=== PATIENT | female | born 1945 | race Two or more races ===

== ENCOUNTER 2025-01-08 14:48 | Inpatient (IN) | payer OTHER, MEDICAID ==
[~2025-01-08] VITALS: Ht 152.4 cm; Wt 57.4 kg
--- NOTE | 2025-01-08 15:12 | ED.PDOC ---
History of Present Illness HPI Comments 79-year-old female with history of hypertension, diabetes, dyslipidemia, CKD and asthma brought in by EMS from home for evaluation of a syncopal episode preceded by dizziness. Arrival by EMS, patient was found to have blood pressure in the 80s systolic. On arrival to the ER, the patient is complaining of left lower quadrant abdominal pain. She denies any headache, vision changes, weakness, chest pain, shortness a breath, nausea, vomiting, diarrhea or dysuria. Chief Complaint: Low Blood Pressure Time Seen by MD: 15:00 Reviewed Notes: Nurses Notes, Glazier Helper Notes, Medications, Allergies Allergies: Coded Allergies: NO KNOWN ALLERGIES (Unverified , 01/08/25) Information Source: Patient, Emergency Med Personnel Mode of Arrival: EMS Past Medical History PAST MEDICAL HISTORY: Asthma, CKF, DM, High Lipids, HTN Surgical History: Denies all surgeries JUNIOR LEGAL SECRETARY History: No Pertinent JUNIOR LEGAL SECRETARY History Family History Family History: Reviewed,noncontributory to illness Social History Smoker: Non-Smoker Alcohol: Denies ETOH Use Drugs: Denies Drug Use Lives In: Home All Other Systems: Reviewed and Negative (Comprehensive systems review obtained and negative except for what is stated in the HPI.) Physical Exam General Appearance: Mild Distress HEENT: Other (Pupils and face symmetric. Moist mucous membranes.) Neck: Full Range of Motion, Normal Inspection Respiratory: Lungs Clear, No Accessory Muscle Use, No Respiratory Distress, Normal Breath Sounds Cardiovascular: No Edema, No JVD, Regular Rate/Rhythm Breast Exam: Deferred Gastrointestinal: LLQ, Soft, Tenderness Genitalia: Deferred Pelvic: Deferred Rectal: Deferred Extremities: Normal inspection, Normal range of motion, Non-tender, No pedal edema Neurologic: Alert (Oriented x4), Normal Affect, Normal Mood, Other (Moves all extremities) Cerebellar Function: NOT DONE Reflexes: NOT DONE Skin: Dry, Normal Color, Warm Lymphatic: NOT DONE Was a procedure done? Was a procedure done?: No Differential Dx Considerations may include: CVA, TIA, arrhythmia, NV, UTI, colitis, diverticular disease, kidney stone, hypovolemia/orthostasis, sepsis, among others X-Ray, Labs, Meds, VS Vital Signs Date Time Temp Pulse Resp B/P (MAP) Pulse Ox O2 Delivery O2 Flow Rate FiO2 01/08/25 20:00 99.1 90 17 138/59 (85) 99 99.1 8/23/25 18:00 86 17 114/89 (97) 99 01/08/25 17:38 99 Room Air* 0 21 01/08/25 17:00 95 22 99 Room Air* 0 21 01/08/25 16:00 95 17 129/69 (89) 99 01/08/25 15:23 98.5 62 16 87/45 96 98.5 01/08/25 15:12 98.9 76 17 93/26 (48) 99 98.9 Lab Test 01/08/25 17:42 01/08/25 16:17 01/08/25 16:01 Range/Units Lactic Acid Level 3.1 *H 3.3 *H 0.4-2.0 mmol/L Troponin I High Sensitivity 3 L 4 </=34 ng/L Stool pH Pending Stool Occult Blood Positive Negative Stool Occult Blood Sample #3 Negative Stool for White Cells None seen White Blood Count 29.0 H 4.4-10.8 10^3/uL Red Blood Count 4.98 4.0-5.20 10^6/uL Hemoglobin 13.5 12.2-16.2 g/dL Hematocrit 41.6 36.0-46.0 % Mean Corpuscular Volume 83.4 80.0-100.0 fL Mean Corpuscular Hemoglobin 27.1 L 28.0-32.0 pg Mean Corpuscular Hemoglobin Concent 32.5 32.0-36.0 g/dL Red Cell Distribution Width 15.1 H 11.8-14.3 % Platelet Count 351 140-450 10^3/uL Mean Platelet Volume 8.3 6.9-10.8 fL Neutrophils (%) (Auto) 37.0-80.0 % Lymphocytes (%) (Auto) 10.0-50.0 % Monocytes (%) (Auto) 0.0-12.0 % Basophils (%) (Auto) 0.0-2.0 % Neutrophils # (Auto) 1.6-8.6 10 ^3/uL Lymphocytes # (Auto) 0.4-5.4 10 ^3/uL Monocytes # (Auto) 0-1.3 10 ^3/uL Differential Total Cells Counted 100.0 100 Neutrophils % (Manual) 77 37.0-80.0 Band Neutrophils % (Manual) 7 Lymphocytes % (Manual) 10 10.0-50.0 Monocytes % (Manual) 6 0-12 Eosinophils % (Manual) 0 0-7 Basophils % (Manual) 0 0.0-2.0 Metamyelocytes % (manual) 0 Myelocytes % (Manual) 0 Promyelocytes % (Manual) 0 Blast Cells % (Manual) 0 Reactive Lymphocytes 0 Platelet Estimate Adequate Prothrombin Time 10.8 9.3-11.8 sec Prothrombin Time INR 1.02 0.9-1.15 Activated Partial Thromboplast Time 22.2 L 24.5-34.5 SEC D-Dimer, Quantitative > 35.20 H 0.0-0.49 mg/L FEU Sodium Level 141 136-145 mmol/L Potassium Level 3.6 3.5-5.1 mmol/L Chloride Level 106 98-107 mmol/L Carbon Dioxide Level 20 20-31 mmol/L Anion Gap 15 5-15 Blood Urea Nitrogen 20 9-23 mg/dL Creatinine 1.39 H 0.550-1.02 mg/dL Glomerular Filtration Rate Calc 38 >90 mL/min BUN/Creatinine Ratio 14.4 10.0-20.0 Serum Glucose 162 H 74-106 mg/dL Calcium Level 9.8 8.7-10.4 mg/dL Total Bilirubin 0.3 0.2-1.0 mg/dL Aspartate Amino Transferase (AST) 30 13-40 U/L Alanine Aminotransferase (ALT) 22 7-40 U/L Alkaline Phosphatase 66 46-116 U/L B-Type Natriuretic Peptide 61.99 0-100 pg/mL Total Protein 7.2 5.7-8.2 g/dL Albumin 4.7 3.2-4.8 g/dL Current Medications Medications (Trade) Dose Ordered Sig/Claudy Route Start Time Stop Time Status Last Admin Lactated Ringer's 2,000 ml @ 1,000 mls/hr Q2H ONCE IV 01/08/25 15:15 01/08/25 17:14 DC 01/08/25 15:35 Cefepime HCl 50 ml @ 50 mls/hr ONCE ONCE IV 01/08/25 16:15 01/08/25 17:14 DC 01/08/25 16:[address] [address] Ph: [phone] DIAGNOSTIC IMAGING Diagnostic Imaging Report : [id number] Signed PATIENT: SYDNEE CASTILLO ACCT: [id number] UNIT: [id number] : 1945 LOC: ER ROOM / BED: / AGE / SEX: 79 / F ADM STATUS: REG ER SERVICE [id number] ORDERING PHYSICIAN: ESDRAS JOHNSON MD PROCEDURE(s): HWOCT - HEAD WITHOUT CONTRAST REASON: syncope ORDER NUMBER(s): [id number], ACCESSION NUMBER(s): [id number] EXAM: CT HEAD WITHOUT CONTRAST INDICATION: syncope TECHNIQUE: CT of the head without intravenous contrast. Radiation Dose Information: CT Dose: CTDI volume is 53.44 mGy. Dose-length product is 965.26 mGy*cm The dose indicators for CT are the volume Computed Tomography (CT) Dose Index (CTDIvol) and the Dose Length Product (DLP), and are measured in units of mGy and mGy-cm, respectively. These indicators are not patient dose, but values generated from the CT scanner acquisition factors. The report includes radiation exposure data for exposures received during this examination. COMPARISON: None FINDINGS: There is no evidence of acute intracranial hemorrhage, extra-axial collection, mass effect, midline shift, herniation or hydrocephalus. The ventricles, sulci and cisterns are age appropriate. The mcleod-white differentiation is intact. Patchy periventricular and subcortical white matter hypoattenuation is nonspecific but may be related to small vessel ischemic disease. The visualized paranasal sinuses and mastoid air cells are clear. The surrounding soft tissues and osseous structures are unremarkable. IMPRESSION: 1. No acute intracranial abnormality. ATED BY: RADHA BEACH Jr., DO DICTATED DATE/TIME: 01/08/25 154 SIGNED BY: RADHA BEACH Jr., SIGNED DATE/TIME: 01/08/25 154 CC: [place] [id number] Ph: [phone] DIAGNOSTIC IMAGING Diagnostic Imaging Report : [id number] Signed PATIENT: SYDNEE CASTILLO ACCT: [id number] UNIT: [id number] : 1945 LOC: ER ROOM / BED: / AGE / SEX: 79 / F ADM STATUS: REG ER SERVICE 1503 ORDERING PHYSICIAN: ESDRAS JOHNSON MD PROCEDURE(s): CXRP - CHEST PORTABLE REASON: syncope hypotension ORDER NUMBER(s): [id number], ACCESSION NUMBER(s): [id number] CHEST RADIOGRAPH Indication: syncope hypotension Technique: Single frontal view of the chest was obtained Comparison: None FINDINGS: Lines and Tubes: None Lungs: No focal consolidation. Bronchovascular crowding due 2 low lung volumes. Pleura: No effusion. No pneumothorax. Cardiomediastinal contours: Unremarkable Bones: No acute osseous abnormality. IMPRESSION: No acute cardiopulmonary disease. ATED BY: PARVIN TAVERA DO DICTATED DATE/TIME: 01/08/251545 SIGNED BY: PARVIN TAVERA DO SIGNED DATE/TIME: 01/08/251545 CC: [place] [id number] Ph: [phone] DIAGNOSTIC IMAGING Diagnostic Imaging Report : [id number] Signed PATIENT: SYDNEE CASTILLO ACCT: [id number] UNIT: [id number] : 1945 LOC: ER ROOM / BED: / AGE / SEX: 79 / F ADM STATUS: REG ER SERVICE 1503 ORDERING PHYSICIAN: ESDRAS JOHNSON MD PROCEDURE(s): ABPL - CT AB PEL WO CON-NO ORAL OR IV REASON: hypotension LLQ pain ORDER NUMBER(s): [id number], ACCESSION NUMBER(s): [id number] Exam: CT CT AB PEL WO CON-NO ORAL OR IV History: hypotension LLQ pain Comparison Study: None TECHNIQUE: Multidetector CT of the abdomen was performed from lung bases to pubic symphysis. Imaging was performed without IV contrast. Axial, coronal and sagittal multiplanar reformats were obtained from the axial data set by the technologist. Radiation Dose Information: CT Dose: CTDI volume is 7.11 mGy. Dose-length product is 368.82 mGy*cm FINDINGS: Evaluation of solid organs is limited due to lack of intravenous contrast use. Findings: Lung Bases: No acute or significant lung base finding. Normal heart size. No pleural or pericardial effusion. Liver: The liver is normal in size. No focal lesions. Gallbladder and Biliary Tree: Unremarkable Spleen: Unremarkable Pancreas: The pancreas is grossly normal in appearance. Adrenal Glands: Unremarkable Kidneys: Kidneys are grossly normal without calculi or hydronephrosis. Bladder: Grossly unremarkable for degree of distention. Bowel: The stomach is grossly normal in appearance. Nondistended fluid-filled small bowel. Stool in the rectosigmoid colon. The appendix is not visualized; however, no secondary findings of acute appendicitis identified. Ascites: Absent Lymphadenopathy: No mesenteric, retroperitoneal or periportal lymphadenopathy. Abdominal Wall and Mesentery: Unremarkable. Vasculature: The visualized abdominal aorta is normal in size and caliber. Evaluation of abdominal and pelvic vessels is limited due to lack of intravenous contrast. Pelvic Organs: Unremarkable Musculoskeletal: No aggressive focal bony lesions, acute fractures or dislocation. Soft tissues: Unremarkable IMPRESSION: 1. Nondistended fluid-filled small bowel may represent enteritis 2. Stool-filled rectosigmoid colon.( 8 cm may represent fecal impaction. Radiation optimization: All CT scans at this facility use at least one of these dose optimization techniques: automated exposure control mA and/or kV adjustment per patient size (includes targeted exams where dose is matched to clinical indication) or iterative reconstruction. ATED BY: RADHA BEACH Jr., DO DICTATED DATE/TIME: 01/08/25 1559 SIGNED BY: RADHA BEACH Jr., SIGNED DATE/TIME: 01/08/25 155 CC: X-Ray, Labs, Meds, VS Comment 79-year-old female with history of hypertension, diabetes, dyslipidemia, CKD and asthma brought in by EMS from home for evaluation of a syncopal episode preceded by dizziness, and complaining of left lower quadrant abdominal pain. Initial vitals remarkable for BP 87/45 Exam remarkable for left lower quadrant tenderness to palpation Rhythm strip independently interpreted by me: Sinus rhythm, rate 62, no ectopy. CT head and chest x-ray unremarkable CT abdomen and pelvis IMPRESSION: 1. Nondistended fluid-filled small bowel may represent enteritis 2. Stool-filled rectosigmoid colon.( 8 cm may represent fecal impaction. CBC remarkable for WBC 29, metabolic panel remarkable for creatinine 1.39, BNP and troponins negative, lactate 3.3, 3.1 on repeat, D-dimer greater than 35.2, stool occult blood positive Patient treated with the following in the ED: 2 L IV LR bolus, cefepime 2 g IV On re-evaluation, BP is 138/59 and other vitals were stable. Patient is saturating 86% on room air and is not in respiratory distress elevation and D- dimer is likely due to sepsis and unlikely due to PE. Patient's creatinine is 1.39, so CT angio chest was not performed to rule out PE. Patient may undergo V /Q scan in the morning. Plan is to admit the patient for IV antibiotics and hydration. Time of 1ST Reevaluation: 15:30 Reevaluation 1ST: Unchanged Patient Education/Counseling: Diagnosis, Treatment, Other (need for admission ) Family Education/Counseling: No Family Present SEPSIS Sepsis Screen Physician Orders Urinalysis (01/08/25 15:03) Chest Portable (01/08/25 15:03) Accucheck (01/08/25 15:03) Blood Culture (01/08/25 15:03) Notify Md If Map <65 Or Bp<90 (01/08/25 15:03) If Map<65 Start Vasopressor (01/08/25 15:03) Sepsis Reassesment After Fluid (01/08/25 16:03) Head Without Contrast (01/08/25 15:03) Ct Ab Pel Wo Con-No Oral Or Iv (01/08/25 15:03) Insert/Manage Urinary Catheter QSHIFT (01/08/25 15:11) Stool Bacterial Culture (01/08/25 16:16) Ph Stool (01/08/25 16:16) Cefepime 1gm/ 50ml (Maxipime 1gm/50ml) (01/09/25 06:00) Vital Signs Date Time Temp Pulse Resp B/P (MAP) Pulse Ox O2 Delivery O2 Flow Rate FiO2 01/08/25 20:00 99.1 90 17 138/59 (85) 99 99.1 01/08/25 18:00 86 17 114/89 (97) 99 01/08/25 17:38 99 Room Air* 0 21 01/08/25 17:00 95 22 99 Room Air* 0 21 01/08/25 16:00 95 17 129/69 (89) 99 01/08/25 15:23 98.5 62 16 87/45 96 98.5 01/08/25 15:12 98.9 76 17 93/26 (48) 99 98.9 Laboratory Tests Test 01/08/25 16:01 01/08/25 17:42 Lactic Acid Level 3.3 mmol/L (0.4-2.0) *H 3.1 mmol/L (0.4-2.0) *H White Blood Count 29.0 10^3/uL (4.4-10.8) H Medications Medications Dose Ordered Sig/Claudy Route Start Time Stop Time Status Last Admin Dose Admin Cefepime HCl 50 ml @ 50 mls/hr ONCE ONCE IV 01/08/25 16:15 01/08/25 17:14 DC 01/08/25 16:21 Lactated Ringer's 2,000 ml @ 1,000 mls/hr Q2H ONCE IV 01/08/25 15:15 01/08/25 17:14 DC 01/08/25 15:35 Reassessment Post Fluid SEPSIS FOCUS EXAM(REASSESSMENT Sepsis reassessment focused exam completed. Date: 01/08/25 Time 20:30 Departure 1 Departure Time of Disposition: 20:30 Impression: Primary Impression: Syncope Additional Impressions: Enteritis Sepsis Disposition: ADMITTED INPATIENT Admit to: Tele Condition: Guarded Critical Care Note Critical Care Time?: Yes (35 min-critical care time only) Critical care comment: Critical care time including multiple bedside re-evaluations, review of lab and imaging studies, discussion of the case with the admitting provider. Patient is high risk for hemodynamic and/or neurologic decompensation. Stability Stability form required: No Heart Score Heart Score: Heart Score Response (Comments) Value History N/A 0 EKG N/A 0 Age N/A 0 Risk Factors N/A 0 Troponin N/A 0 Total 0 I personally scribed for ESDRAS JOHNSON MD ([email or web address]) on 01/08/25 at 17:42. Electronically submitted by Darrel Aquino ([email or web address]). ESDRAS JOHNSON MD Jan 08, 2025 15:12
[2025-01-08] MEDS: LACTATED RINGER'S 2,000 ML IV ONE (15:35)
--- NOTE | 2025-01-08 15:49 | DVH ---
CHEST RADIOGRAPH Indication: syncope hypotension Technique: Single frontal view of the chest was obtained Comparison: None FINDINGS: Lines and Tubes: None Lungs: No focal consolidation. Bronchovascular crowding due 2 low lung volumes. Pleura: No effusion. No pneumothorax. Cardiomediastinal contours: Unremarkable Bones: No acute osseous abnormality. IMPRESSION: No acute cardiopulmonary disease.
--- NOTE | 2025-01-08 15:52 | DVH ---
EXAM: CT HEAD WITHOUT CONTRAST INDICATION: syncope TECHNIQUE: CT of the head without intravenous contrast. Radiation Dose Information: CT Dose: CTDI volume is 53.44 mGy. Dose-length product is 965.26 mGy*cm The dose indicators for CT are the volume Computed Tomography (CT) Dose Index (CTDIvol) and the Dose Length Product (DLP), and are measured in units of mGy and mGy-cm, respectively. These indicators are not patient dose, but values generated from the CT scanner acquisition factors. The report includes radiation exposure data for exposures received during this examination. COMPARISON: None FINDINGS: There is no evidence of acute intracranial hemorrhage, extra-axial collection, mass effect, midline s hift, herniation or hydrocephalus. The ventricles, sulci and cisterns are age appropriate. The mcleod-white differentiation is intact. Patchy periventricular and subcortical white matter hypoattenuation is nonspecific but may be related to small vessel ischemic disease. The visualized paranasal sinuses and mastoid air cells are clear. The surrounding soft tissues and osseous structures are unremarkable. IMPRESSION: 1. No acute intracranial abnormality.
--- NOTE | 2025-01-08 16:01 | DVH ---
Exam: CT CT AB PEL WO CON-NO ORAL OR IV History: hypotension LLQ pain Comparison Study: None TECHNIQUE: Multidetector CT of the abdomen was performed from lung bases to pubic symphysis. Imaging was performed without IV contrast. Axial, coronal and sagittal multiplanar reformats were obtained fr om the axial data set by the technologist. Radiation Dose Information: CT Dose: CTDI volume is 7.11 mGy. Dose-length product is 368.82 mGy*cm FINDINGS: Evaluation of solid organs is limited due to lack of intravenous contrast use. Findings: Lung Bases: No acute or significant lung base finding. Normal heart size. No pleural or pericardial effusion. Liver: The liver is normal in size. No focal lesions. Gallbladder and Biliary Tree: Unremarkable Spleen: Unremarkable Pancreas: The pancreas is grossly normal in appearance. Adrenal Glands: Unremarkable Kidneys: Kidneys are grossly normal without calculi or hydronephrosis. Bladder: Grossly unremarkable for degree of distention. Bowel: The stomach is grossly normal in appearance. Nondistended fluid-filled small bowel. Stool in t he rectosigmoid colon. The appendix is not visualized; however, no secondary findings of acute appen dicitis identified. Ascites: Absent Lymphadenopathy: No mesenteric, retroperitoneal or periportal lymphadenopathy. Abdominal Wall and Mesentery: Unremarkable. Vasculature: The visualized abdominal aorta is normal in size and caliber. Evaluation of abdominal a nd pelvic vessels is limited due to lack of intravenous contrast. Pelvic Organs: Unremarkable Musculoskeletal: No aggressive focal bony lesions, acute fractures or dislocation. Soft tissues: Unremarkable IMPRESSION: 1. Nondistended fluid-filled small bowel may represent enteritis 2. Stool-filled rectosigmoid colon.( 8 cm may represent fecal impaction. Radiation optimization: All CT scans at this facility use at least one of these dose optimization arlene hniques: automated exposure control mA and/or kV adjustment per patient size (includes targeted exam s where dose is matched to clinical indication) or iterative reconstruction.
[2025-01-08 16:20] LABS: Hemoglobin 13.5 g/dL (12.2-16.2)
[2025-01-08] MEDS: CEFEPIME 1GM/ 50ML 50 ML IV ONE (16:21)
[2025-01-08 16:22] LABS: Hematocrit 41.6 % (36.0-46.0); Mean Corpuscular Hemoglobin 27.1 pg (28.0-32.0); Mean Corpuscular Volume 83.4 fL (80.0-100.0)
[2025-01-08 16:40] LABS: Alanine Aminotransferase 22 U/L (7-40); Albumin 4.7 g/dL (3.2-4.8); Alkaline Phosphatase 66 U/L (46-116); Anion Gap 15 (5-15); BUN/Creatinine Ratio 14.4 (10.0-20.0); Bilirubin, Total 0.3 mg/dL (0.2-1.0); Blood Urea Nitrogen 20 mg/dL (9-23); Calcium 9.8 mg/dL (8.7-10.4); Chloride 106 mmol/L (98-107); Potassium 3.6 mmol/L (3.5-5.1); Sodium 141 mmol/L (136-145); Total Cells Counted 100.0 (100); Total Protein 7.2 g/dL (5.7-8.2)
[2025-01-08 16:41] LABS: Carbon Dioxide 20 mmol/L (20-31); Glucose 162 mg/dL (74-106)
[2025-01-08 16:42] LABS: INR 1.02 (0.9-1.15); Partial Thromboplastin Time 22.2 SEC (24.5-34.5); Prothrombin Time 10.8 sec (9.3-11.8)
[2025-01-08 16:44] LABS: Lactic Acid w/Reflex 3.3 mmol/L (0.4-2.0)
[2025-01-08 17:00] VITALS: PULSE 95; RESP 22; O2SAT 99
[2025-01-08] MEDS ORDERED: DEXTROSE (50%) 50ML SYRG IV PRN (21:00)
[2025-01-08] MEDS ORDERED: NITROGLYCERIN 0.4 MG SL TAB SL PRN (21:00)
--- NOTE | 2025-01-08 21:22 | DVHHP2 ---
ESTRELLA GOMEZ RESIDENT 01/08/252121: History of Present Illness History of Present Illness The patient is 79-year-old female with past medical history of hypertension, diabetes on insulin, dyslipidemia, hypothyroidism, who came to the hospital after the patient fell and got dizzy while sitting understanding of in washroom, fell in wash him, started waking up again patient fell down on hallway. Witnessed by family member. This event happened around 2:00 p.m. on 08/05/2024. The patient had similar episodes where the patient get dizziness while certainly standing up however never had passing out episode. Doing this even patient hit her head as well. Never happened he has event before. The patient also complaining of left-sided lower quadrant abdominal pain associated with associated with constipation past 3-4 day. Last bowel movement was 3 days ago. Oxygen should waiting discomfort as well. Because of the patient is not having good oral intake of liquid And solid food. Apart from that the patient denied any other complaint green chest pain, shortness of bread, fever, chills however patient complaining of mild she were today. No any other complaint of sensory deficit, motor weakness, any other complaint. As per family and patient the patient is pretty active and able to ambulate without any support. No any other complaint. Past medical history:hypertension, diabetes on insulin, dyslipidemia, hypothyroidism Past surgical history: None Family's history: Noncontributory Personal history: The patient lives with family, sister take care of her at home. Home medication: Levothyroxine , benazepril, duloxetine, insulin, donepezil, gabapentin. Review of Systems Review of Systems The patient is alert oriented, complaining of mild left lower quadrant abdominal pain, no any other complaint. Patient had bowel movement today. Constitutional: No: Fever, Chills, Sweats, Weakness, Malaise, Other Eyes: No: Pain, Vision change, Conjunctivae inflammation, Eyelid inflammation, Other, Redness ENT: No: Ear pain, Ear discharge, Nose pain, Nose discharge, Nose congestion, Mouth pain, Mouth swelling, Throat pain, Throat swelling, Other Respiratory: No: Cough, Dry, Shortness of breath, SOB with excertion, Wheezing, Hemoptysis, Pleuritic Pain, Sputum, Wheezing, Other Cardiovascular: No: Chest Pain, Palpitations, Orthopnea, Paroxysmal Noc. Dyspnea, Edema, Lt Headedness, Other Gastrointestinal: Abdominal Pain Genitourinary: No Dysuria, No Frequency, No Incontinence, No Hematuria, No Retention, No Other Musculoskeletal: No: other, neck pain, shoulder pain, arm pain, back pain, hand pain, leg pain, foot pain Skin: No: Rash, Lesions, Jaundice, Bruising, Other Neurological: No: Weakness, Numbness, Incoordination, Change in speech, Confusion, Seizures, Other Allergies: Coded Allergies: NO KNOWN ALLERGIES (Unverified , 01/08/25) Medications Current Medications Medications Dose Ordered Sig/Claudy Route Start Time Stop Time Status Last Admin Dose Admin Nitroglycerin 0.4 mg Q5MINP PRN SL 01/08/25 21:00 Morphine Sulfate 2 mg Q30M PRN IV 01/08/25 21:00 Piperacillin Sod/ Tazobactam Sod 100 ml @ 25 mls/hr Q8HR IV 01/08/25 22:00 Sodium Chloride 1,000 ml @ 100 mls/hr Q10H IV 01/08/25 21:00 Levothyroxine Sodium 75 mcg QAM@0600 PO 01/09/25 06:00 Duloxetine HCl 30 mg DAILY PO 01/09/25 10:00 Donepezil HCl 10 mg HS PO 01/08/25 22:00 Diagnostic Test (Pha) 1 strip ACHS 01/08/25 22:00 Insulin Human Regular ACHS SC 01/08/25 22:00 Dextrose 50 ml UD PRN IV 01/08/25 21:00 Exam Vital Signs Vital Signs Date Time Temp Pulse Resp B/P (MAP) Pulse Ox O2 Delivery O2 Flow Rate FiO2 01/08/25 20:00 99.1 90 17 138/59 (85) 99 99.1 01/08/25 17:38 Room Air* 0 21 General Appearance: Alert, Oriented X3, Cooperative, No acute distress HEENT: Mucous membr. moist/pink Respiratory: Clear to auscultation, Normal air movement Cardiovascular: Normal S1, Normal S2 Abdominal: Normal bowel sounds, Other (Left lower quadrant abdominal pain tenderness, no rigidity, no guarding, abdomen soft, presence of bowel sounds.) Extremities: No clubbing, No cyanosis Skin: No rashes, No breakdown Neuro: Normal speech, Strength at 5/5 X4 ext, Normal tone, Sensation intact, Cranial nerves 3-12 NL Psych/Mental Status: Mental status NL Labs/Xrays Labs Test 01/08/25 20:40 01/08/25 17:42 01/08/25 16:17 01/08/25 16:01 Range/Units Lactic Acid Level 3.1 *H 0.4-2.0 mmol/L Troponin I High Sensitivity 3 L </=34 ng/L Stool Occult Blood Positive Negative Stool Occult Blood Sample #3 Negative Stool for White Cells None seen White Blood Count 29.0 H 4.4-10.8 10^3/uL Red Blood Count 4.98 4.0-5.20 10^6/uL Hemoglobin 13.5 12.2-16.2 g/dL Hematocrit 41.6 36.0-46.0 % Mean Corpuscular Volume 83.4 80.0-100.0 fL Mean Corpuscular Hemoglobin 27.1 L 28.0-32.0 pg Mean Corpuscular Hemoglobin Concent 32.5 32.0-36.0 g/dL Red Cell Distribution Width 15.1 H 11.8-14.3 % Platelet Count 351 140-450 10^3/uL Mean Platelet Volume 8.3 6.9-10.8 fL Neutrophils (%) (Auto) 37.0-80.0 % Lymphocytes (%) (Auto) 10.0-50.0 % Monocytes (%) (Auto) 0.0-12.0 % Basophils (%) (Auto) 0.0-2.0 % Neutrophils # (Auto) 1.6-8.6 10 ^3/uL Lymphocytes # (Auto) 0.4-5.4 10 ^3/uL Monocytes # (Auto) 0-1.3 10 ^3/uL Differential Total Cells Counted 100.0 100 Neutrophils % (Manual) 77 37.0-80.0 Band Neutrophils % (Manual) 7 Lymphocytes % (Manual) 10 10.0-50.0 Monocytes % (Manual) 6 0-12 Eosinophils % (Manual) 0 0-7 Basophils % (Manual) 0 0.0-2.0 Metamyelocytes % (manual) 0 Myelocytes % (Manual) 0 Promyelocytes % (Manual) 0 Blast Cells % (Manual) 0 Reactive Lymphocytes 0 Platelet Estimate Adequate Prothrombin Time 10.8 9.3-11.8 sec Prothrombin Time INR 1.02 0.9-1.15 Activated Partial Thromboplast Time 22.2 L 24.5-34.5 SEC D-Dimer, Quantitative > 35.20 H 0.0-0.49 mg/L FEU Sodium Level 141 136-145 mmol/L Potassium Level 3.6 3.5-5.1 mmol/L Chloride Level 106 98-107 mmol/L Carbon Dioxide Level 20 20-31 mmol/L Anion Gap 15 5-15 Blood Urea Nitrogen 20 9-23 mg/dL Creatinine 1.39 H 0.550-1.02 mg/dL Glomerular Filtration Rate Calc 38 >90 mL/min BUN/Creatinine Ratio 14.4 10.0-20.0 Serum Glucose 162 H 74-106 mg/dL Calcium Level 9.8 8.7-10.4 mg/dL Total Bilirubin 0.3 0.2-1.0 mg/dL Aspartate Amino Transferase (AST) 30 13-40 U/L Alanine Aminotransferase (ALT) 22 7-40 U/L Alkaline Phosphatase 66 46-116 U/L B-Type Natriuretic Peptide 61.99 0-100 pg/mL Total Protein 7.2 5.7-8.2 g/dL Albumin 4.7 3.2-4.8 g/dL SEPSIS Sepsis Screen Date sepsis recognized/suspect: Jan 08, 2025 Time Sepsis recognized/suspect: 1509 Recent Procedure: No On Antibiotic Therapy: No Respiratory Rate >20: Yes Heart Rate >90: Yes Temp<36 C (96.8 F) or >38.3 C: No SBP <90 or MAP <65 mmHG: Yes New Acute Mental Status Change: Yes Is the patient on CPAP, BIPAP,: No Physician Orders Chest Portable (01/08/25 15:03) Accucheck (01/08/25 15:03) Blood Culture (01/08/25 15:03) Notify Md If Map <65 Or Bp<90 (01/08/25 15:03) If Map<65 Start Vasopressor (01/08/25 15:03) Sepsis Reassesment After Fluid (01/08/25 16:03) Head Without Contrast (01/08/25 15:03) Ct Ab Pel Wo Con-No Oral Or Iv (01/08/25 15:03) Insert/Manage Urinary Catheter QSHIFT (01/08/25 15:11) Stool Bacterial Culture (01/08/25 16:16) Ph Stool (01/08/25 16:16) Admit (01/08/25 20:52) Nitroglycerin Sublingual (Ntrostat Subli (01/08/25 21:00) Morphine Sulfate Injection (01/08/25 21:00) Oxygen By Nasal Cannula (01/08/25 20:52) [employer] U[employer]ol[employer] Measurer For 24 Hours (01/08/25 20:52) Emergency Dysrhythmia Protocol (01/08/25 20:52) Rhythm Strips Once Every Shift (01/08/25 20:52) Complete Blood Count (01/09/25 04:00) Basic Metabolic Panel (01/09/25 04:00) Urinalysis (01/08/25 20:52) Lactic Acid W/ Reflex Order (01/08/25 23:00) Magnesium (01/08/25 20:52) Thyroid Stimulating Hormone (01/08/25 20:52) Piperacillin-Tazob 3.375gm (Zosyn 3.375g (01/08/25 22:00) Sodium Chloride 0.9% (01/08/25 21:00) Clear Liq Diet (01/09/25 Breakfast) Levothyroxine Tablet (Synthroid Tablet) (01/09/25 06:00) Duloxetine Hcl Capsule (Cymbalta Capsule (01/09/25 10:00) Donepezil Tablet (Aricept Tablet) (01/08/25 22:00) Glucose Blood (Accu-Chek Comfort Curve T (01/08/25 22:00) Insulin R (Human) (Insulin R) (01/08/25 22:00) Dextrose 50% Syringe (01/08/25 21:00) Nm Vq Scan (01/08/25 21:01) Enoxaparin Sodium (Lovenox) (01/08/25 21:15) Bilat Lower Dvt (01/08/25 21:03) Vital Signs Date Time Temp Pulse Resp B/P (MAP) Pulse Ox O2 Delivery O2 Flow Rate FiO2 01/08/25 20:00 99.1 90 17 138/59 (85) 99 99.1 01/08/25 18:00 86 17 114/89 (97) 99 01/08/25 17:38 99 Room Air* 0 21 01/08/25 17:00 95 22 99 Room Air* 0 21 01/08/25 16:00 95 17 129/69 (89) 99 01/08/25 15:23 98.5 62 16 87/45 96 98.5 01/08/25 15:12 98.9 76 17 93/26 (48) 99 98.9 Laboratory Tests Test 01/08/25 16:01 01/08/25 17:42 Lactic Acid Level 3.3 mmol/L (0.4-2.0) *H 3.1 mmol/L (0.4-2.0) *H White Blood Count 29.0 10^3/uL (4.4-10.8) H Medications Medications Dose Ordered Sig/Claudy Route Start Time Stop Time Status Last Admin Dose Admin Cefepime HCl 50 ml @ 50 mls/hr ONCE ONCE IV 01/08/25 16:15 01/08/25 17:14 DC 01/08/25 16:21 50 MLS/HR Lactated Ringer's 2,000 ml @ 1,000 mls/hr Q2H ONCE IV 01/08/25 15:15 01/08/25 17:14 DC 01/08/25 15:35 1,000 MLS/HR Reassessment Post Fluid SEPSIS FOCUS EXAM(REASSESSMENT Re-evaluate her on 8:30 p.m.. The patient's heart rate ranging 90s, respiratory rate is 14 to 18, blood pressure improved now blood pressure ranging in 130 systolic with a map greater than 65. Time of Reassessment: 08:30 Skin Temperature: Warm Assessment/Plan Assessment/Plan Septic shock due to acute enteritis Syncope likely due to above, possible orthostatic hypotension JOHANNA due to VMN Rule out PE Fecal impaction, improved. 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 -pending stool culture, stool occult came positive. -lactic acidosis improving, repeat lactic acid. Continue with IV fluid. Continue monitor I&O. -clear liquid diet -given elevated D-dimer which likely related to sepsis, pending V/Q scan, rule out DVT. Given therapeutic Lovenox 60 mEq b.i.d.. Can stop was ruled out. -orthostatic hypotension once the patient is stable and number to ambulate. -currently monitor kidney function, possible underlying CKD, no baseline available. -hyperglycemia with underlying diabetes mellitus. The patient takes initially, currently continued on my initially sliding scale given low oral intake. -levothyroxine 75 mcg p.o. twice daily Extensive medical discussion date with the patient, patient's caregiver her sister, and nephew. The patient and family agrees with code status of DNI DNR. PUD prophylaxis with Protonix DVT prophylaxis with enoxaparin Plan discussed with Dr. Liriano Plan discussed with: Patient (Possible underlying dementia, all discussion was done with the patient, her sister and nephew.), Other My Orders Orders - ESTRELLA GOMEZ RESIDENT Procedure Category Date Status Time Admit ADMIT 01/08/25 Transmitted 20:52 Nitroglycerin PHA 01/08/25 In Process Sublingual (Ntrostat 21:00 Morphine Sulfate PHA 01/08/25 In Process Injection 21:00 Oxygen By Nasal RT 01/08/25 Transmitted Cannula 20:52 Dra[employer] U[employer]ol[employer] Measurer For [facility] 01/08/25 In Process 24 Hours 20:52 Emergency Dysrhythmia DIXIE 01/08/25 In Process Protocol 20:52 Rhythm Strips Once [facility] 01/08/25 In Process Every Shift 20:52 Complete Blood Count LAB 01/09/25 Verified 04:00 Basic Metabolic Panel LAB 01/09/25 Verified 04:00 Urinalysis LAB 01/08/25 In Process 20:52 Lactic Acid W/ Reflex LAB 01/08/25 Logged Order 23:00 Magnesium LAB 01/08/25 In Process 20:52 Thyroid Stimulating LAB 01/08/25 In Process Hormone 20:52 Piperacillin-Tazob PHA 01/08/25 In Process 3.375gm (Zosyn 3.375g 22:00 Sodium Chloride 0.9% PHA 01/08/25 In Process 21:00 Clear Liq Diet DIET 01/09/25 Transmitted Breakfast Levothyroxine Tablet PHA 01/09/25 In Process (Synthroid Tablet) 06:00 Duloxetine Hcl PHA 01/09/25 In Process Capsule (Cymbalta 10:00 Donepezil Tablet PHA 01/08/25 In Process (Aricept Tablet) 22:00 Glucose Blood PHA 01/08/25 In Process (Accu-Chek Comfort 22:00 Insulin R (Human) PHA 01/08/25 In Process (Insulin R) 22:00 Dextrose 50% Syringe PHA 01/08/25 In Process 21:00 Nm Vq Scan NM 01/08/25 Logged 21:01 Enoxaparin Sodium PHA 01/08/25 In Process (Lovenox) 21:15 Bilat Lower Dvt US 01/08/25 Logged 21:03 Date of Service: Jan 08, 2025 Billing Provider: SHAQUILLE LIRIANO MD Common Visit Codes: [id number] INP/OBS CARE (HIGH) SHAQUILLE LIRIANO MD 01/09/25 1046: Review of Systems Allergies: Coded Allergies: NO KNOWN ALLERGIES (Unverified , 01/08/25) ESTRELLA GOMEZ RESIDENT Jan 08, 2025 21:22 SHAQUILLE LIRIANO MD Jan 09, 2025 10:46
[2025-01-08 21:26] LABS: Urine Protein, UAD 1+ (Negative); Urine WBC Clumps PRESENT /hpf (None Seen)
[2025-01-08] MEDS: DONEPEZIL HYDROCHLORIDE 5 MG TAB PO SCH (22:00)
[2025-01-08] MEDS: ENOXAPARIN SOD 60 MG/0.6 ML SYRINGE SC ONE (22:00)
[2025-01-08] MEDS: SODIUM CHLORIDE 0.9% 1,000 ML IV SCH (22:00)
[2025-01-08] MEDS: PANTOPRAZOLE 40 MG/10 ML VIAL INJ IV ONE (22:00)
[2025-01-08] MEDS: PIPERACILLIN-TAZOB 3.375GM 100 ML IV SCH (22:00)
[2025-01-08] MEDS: ACCU-CHEK COMFORT CURVE STRIP VI SCH (22:50)
[2025-01-08] MEDS: InsuLIN REG 1unit/0.01ml Soln (100units/ml) SC SCH (23:15)
--- NOTE | 2025-01-09 00:41 | DVH ---
Bilateral lower extremity venous duplex Clinical History: DVT Comparison: None Findings: Duplex Doppler evaluation of the deep venous systems of both lower extremities from the common femora l veins to the popliteal veins including color Doppler and spectral/pulsed waveform analysis was perf ormed. RIGHT SIDE: The common femoral vein demonstrates appropriate compressibility and waveform variability. There is compressibility/patency of the great saphenous vein at the proximal thigh. The femoral vein demonstrates appropriate compressibility and waveform variability. The deep femoral vein demonstrates appropriate compressibility and waveform variability. The popliteal vein demonstrates appropriate compressibility and waveform variability. There is normal compressibility at the tibioperoneal trunk. There is nonspecific fluid in the right popliteal fossa. LEFT SIDE: The common femoral vein demonstrates appropriate compressibility and waveform variability. There is compressibility/patency of the great saphenous vein at the proximal thigh. The femoral vein demonstrates appropriate compressibility and waveform variability. The deep femoral vein demonstrates appropriate compressibility and waveform variability. The popliteal vein demonstrates appropriate compressibility and waveform variability. There is normal compressibility at the tibioperoneal trunk. IMPRESSION: 1. No sonographic evidence of acute DVT. 2. Nonspecific fluid in the right popliteal fossa. 3. END IMPRESSION:
[2025-01-09] MEDS: MORPHINE SULFATE INJ 2 MG/ml SYRG IV PRN (00:47)
[2025-01-09 04:27] LABS: Hematocrit 37.3 % (36.0-46.0); Hemoglobin 12.3 g/dL (12.2-16.2); Mean Corpuscular Hemoglobin 27.2 pg (28.0-32.0); Mean Corpuscular Volume 82.6 fL (80.0-100.0); Nucleated Red Blood Cells % 0.0 %
[2025-01-09 04:34] LABS: Potassium 4.3 mmol/L (3.5-5.1); Sodium 141 mmol/L (136-145)
[2025-01-09 04:35] LABS: Anion Gap 10 (5-15); Carbon Dioxide 23 mmol/L (20-31)
[2025-01-09 04:38] LABS: Calcium 8.4 mg/dL (8.7-10.4); Chloride 108 mmol/L (98-107)
[2025-01-09 04:40] LABS: BUN/Creatinine Ratio 12.5 (10.0-20.0); Blood Urea Nitrogen 13 mg/dL (9-23)
[2025-01-09 04:50] LABS: Glucose 153 mg/dL (74-106)
[2025-01-09] MEDS ORDERED: CEFEPIME 1GM/ 50ML 50 ML IV SCH (06:00)
[2025-01-09] MEDS: LEVOTHYROXINE SODIUM 25 MCG TAB PO SCH (06:00)
[2025-01-09 07:33] VITALS: PULSE 77; RESP 20; O2SAT 98
[2025-01-09 08:05] LABS: Triglycerides 57 mg/dL (< 150)
[2025-01-09 08:07] LABS: HDL Cholesterol 42 mg/dL (40-59)
[2025-01-09 08:08] LABS: Cholesterol 99 mg/dL (< 200)
[2025-01-09 09:30] VITALS: PULSE 75; RESP 16; O2SAT 98
[2025-01-09] MEDS: PANTOPRAZOLE 40 MG/10 ML VIAL INJ IV SCH (11:22)
[2025-01-09] MEDS: ENOXAPARIN SOD 100 MG/1 ML SYRINGE SC SCH (11:22)
[2025-01-09 13:16] LABS: Urine Protein, UAD Negative (Negative)
[2025-01-09] MEDS: IOHEXOL 350 MG/ML 100ML IJ ONE (13:40)
--- NOTE | 2025-01-09 13:53 | DVH ---
CLINICAL INFORMATION: Rule out pulmonary embolism. TECHNIQUE: Axial CTA images of the chest were obtained after the uneventful administration of 100 mL of Omnipaque 350 IV contrast. Coronal and sagittal reformatted images and MIP images were obtained, r eviewed, and stored. One or more of the following dose reduction techniques were used: Automated expo sure control. Adjustment of mA and/or kV according to patient size. CTDIvol = 19.01, 11.84, 0.14 mGy DLP = 582.75 mGy-cm COMPARISON: Chest radiograph dated 01/08/2025. FINDINGS: Pulmonary arteries: No central or lobar pulmonary embolism. Evaluation for segmental or subsegmental pulmonary emboli is limited due to respiratory motion artifact. Aorta: Moderate atherosclerotic calcification. No thoracic aortic aneurysm Cardiac: Heart size is within normal limits. Marked coronary artery calcification. Mediastinum/amie: No mass or adenopathy. Lungs: Respiratory motion artifact limits evaluation. Dependent atelectasis in the lower lobes bilat erally. No focal consolidation. No pneumothorax or pleural effusion. 4.5 mm pulmonary nodule in the c audal aspect of the right upper lobe near the right minor fissure. Chest wall: No mass or other abnormality. Upper abdomen: Hepatic steatosis. Small amount of perihepatic fluid. Bones: No acute fracture or suspicious intraosseous lesions. IMPRESSION: 1. No central or lobar pulmonary embolism. Evaluation for segmental or subsegmental pulmonary emboli is limited due to respiratory motion artifact. 2. Atelectasis in the lower lobes. No focal consolidation. No pneumothorax or pleural effusion. 3. 4.5 mm pulmonary nodule in the right upper lobe near the minor fissure. Correlate with patient ris k factors for lung cancer recommended. Per Fleischner society recommendations, if the patient is high risk, follow-up CT chest in 12 months could be considered. 4. Hepatic steatosis and small amount of perihepatic fluid. 5. Additional findings as described above.
--- NOTE | 2025-01-09 15:03 | DVHPNRES ---
Progress Note Date Seen: Jan 09, 2025 Resident Creating Document: NATHAN LARSON RESIDENT Medical Necessity Reason Pt with a Central, PICC or Fol: Yes The following are medically ne: Iglesias Catheter Subjective Review of Systems Brief history and review of system on admission: Josie Hobbs is 79-year-old female with past medical history of hypertension, diabetes on insulin, dyslipidemia, hypothyroidism, who presented to the ER with complain of abdominal pain, dizziness and fall. She reported feeling dizzy and fell after standing up from a sitting position in washroom, she reports falling down again as she started to walk down on hallway. She reported similar episodes where the patient get dizziness while certainly standing up however never had passing out episode. She reports hitting her head. Never happened he has event before. She also complained of left-lower quadrant abdominal pain associated with associated with constipation for the past 4 day. She reports reduced oral intake. She also complained of urinary retention, Iglesias placed in ER. She denied chest pain, shortness of bread, fever, chills. No any other complaint of sensory deficit, motor weakness, any other complaint. As per family and patient the patient is pretty active and able to ambulate without any support. Past medical history: Hypertension, diabetes on insulin, dyslipidemia, hypothyroidism Past surgical history: None Family's history: Noncontributory Personal history: The patient lives with family, sister take care of her at home. Home medication: Levothyroxine , benazepril, duloxetine, insulin, donepezil, gabapentin. ROS: Constitutional: Denies weight loss, fever and chills. HEENT: Denies changes in vision and hearing. Respiratory: Denies shortness of breath and cough Cardiovascular: Denies chest discomfort or palpitations GI: Abdominal pain with constipation : Denies dysuria and urinary frequency. Musculoskeletal: Denies myalgias and joint pain Skin: Denies rash and pruritus. Neurological: Dizziness, fall 01/09/2025: She was examined at bedside today. Vitals show tachypnea, resolving. She complains of mild abdominal discomfort, pain in right arm. She reported having a bowel movement yesterday. Managed with IV fluids, antibiotics for acute gastroenteritis. Ordered orthostatic vitals; CT angiogram to rule out PE. Objective vital signs Vital Sign Date Time Temp Pulse Resp B/P (MAP) Pulse Ox O2 Delivery O2 Flow Rate FiO2 8/24/25 14:00 77 18 136/51 (79) 96 01/09/25 09:30 98.2 98.2 01/09/25 09:30 Room Air* 0 21 Total Intake and Output 01/08/25 01/08/25 01/09/25 15:00 23:00 07:00 Intake Total 2050 ml Output Total 800 ml Balance 1250 ml medications Current Medications Medications Dose Ordered Sig/Claudy Route Start Time Stop Time Status Last Admin Dose Admin Nitroglycerin 0.4 mg Q5MINP PRN SL 01/08/25 21:00 Morphine Sulfate 2 mg Q30M PRN IV 01/08/25 21:00 01/09/25 00:47 2 MG Piperacillin Sod/ Tazobactam Sod 100 ml @ 25 mls/hr Q8HR IV 01/08/25 22:00 01/09/25 13:45 25 MLS/HR Sodium Chloride 1,000 ml @ 100 mls/hr Q10H IV 01/08/25 21:00 01/09/25 08:08 100 MLS/HR Levothyroxine Sodium 75 mcg QAM@0600 PO 01/09/25 06:00 01/09/25 06:00 75 MCG Duloxetine HCl 30 mg DAILY PO 01/09/25 10:00 01/09/25 11:21 30 MG Donepezil HCl 10 mg HS PO 01/08/25 22:00 01/08/25 22:00 10 MG Diagnostic Test (Pha) 1 strip ACHS 01/08/25 22:00 01/09/25 11:20 1 STRIP Insulin Human Regular ACHS SC 01/08/25 22:00 01/08/25 23:15 3 UNITS Dextrose 50 ml UD PRN IV 01/08/25 21:00 Pantoprazole Sodium 40 mg DAILY IV 01/09/25 10:00 01/09/25 11:22 40 MG Enoxaparin Sodium 60 mg Q12HR SC 01/09/25 10:00 01/09/25 11:22 60 MG Examination General: Patient alert and oriented in person, place and time. Patient following commands. HEENT: Normocephalic, atraumatic, moist mucous membranes Respiratory/pulmonary: Clear lungs bilaterally, vesicular murmurs present in almost all lung steen, no associated crackles or wheezes. Cardiovascular: Normal heart sounds S1 and S2 with no associated murmurs Abdomen: Abdominal tenderness in the left lower quadrant Extremities: There is no peripheral edema present at the lower extremities. Peripheral Pulses: 3+ Radial (R). 3+ Radial (L). 3+ Dorsalis pedis (R). 3+ Dorsalis pedis(L) Skin: No rashes or pruritus, there is no sacral edema present at this time. Neurological: Intact cranial nerves with no focal neurologic deficits laboratory and microbiology Laboratory Tests 01/09/25 04:05 Test 01/09/25 04:05 Range/Units Serum Glucose 153 H 74-106 mg/dL Microbiology Date/Time Source Procedure Growth Status 01/08/25 16:17 Stool Stool Culture - Preliminary Resulted 01/08/25 16:17 Stool Shiga Toxin I & II Pending Resulted Problem List/Assessment/Plan Problem List/Assessment/Plan Severe sepsis, likely due to below Acute infectious gastroenteritis, bacterial/viral possible Complicated UTI, possible Urinary retention Labs show elevated WBC, lactic acid. UA positive for UTI Blood, stool culture ordered CT abdomen revealed gastritis Continue IV fluids, piperacillin tazobactam, cefepime Syncope likely due to above Hemorrhagic stroke, ruled out Rule out orthostatic hypotension CT head negative for acute pathology Ordered orthostatic vitals Rule out PE Elevated D-dimer. CT angio ordered Fecal impaction, improved. 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 Full code DISPOSITION: Med/surge Patient's status and plan discussed with the patient. Case discussed with Dr. Hoyt Plan discussed with: Patient My Orders My Orders Orders - NATHAN LARSON RESIDENT Procedure Category Date Status Time Orthostatic Vital ORDERS 01/09/25 Transmitted Signs 09:[address] 01/09/25 Resulted Contrast 12:49 Date of Service: Jan 09, 2025 Billing Provider: ESTELA HOYT MD Common Visit Codes: [id number] INP/OBS CARE(HIGH) NATHAN LARSON RESIDENT Jan 09, 2025 15:03 ESTELA HOYT MD Jan 09, 2025 23:07
[2025-01-09 18:41] VITALS: PULSE 67; RESP 18; O2SAT 94
[2025-01-09] MEDS ORDERED: DULA0.5I SC (18:58)
[2025-01-09] MEDS ORDERED: PRAV20TA3 PO (18:58)
[2025-01-09] MEDS ORDERED: DULO20CA PO (18:58)
[2025-01-09] MEDS ORDERED: DONE1TAB88 PO (18:58)
[2025-01-09] MEDS ORDERED: BENA40TA71 PO (18:58)
[2025-01-09] MEDS ORDERED: ALBU0.636 IN (18:58)
[2025-01-09] MEDS ORDERED: [UNRECOGNIZED DRUG - CODE] EX (18:58)
[2025-01-09] MEDS ORDERED: INSLANTI SC (18:58)
[2025-01-09] MEDS ORDERED: FLUT0.05 NAS (18:58)
[2025-01-09 20:10] VITALS: PULSE 80
[2025-01-09 21:00] VITALS: BP 129/61; PULSE 82; RESP 16; TEMP 99.2; O2SAT 93
[2025-01-10] VITALS (9 sets, daily range): BP systolic 118–135; BP diastolic 60–71; PULSE 61–90; RESP 16–19; TEMP 97.3–99; O2SAT 90–98
[2025-01-10 06:48] LABS: Hematocrit 34.9 % (36.0-46.0); Hemoglobin 11.4 g/dL (12.2-16.2); Mean Corpuscular Hemoglobin 27.1 pg (28.0-32.0); Mean Corpuscular Volume 82.9 fL (80.0-100.0); Nucleated Red Blood Cells % 0.0 %
[2025-01-10 06:49] LABS: Potassium 3.6 mmol/L (3.5-5.1); Sodium 138 mmol/L (136-145)
[2025-01-10 06:50] LABS: Anion Gap 9 (5-15); Carbon Dioxide 21 mmol/L (20-31)
[2025-01-10 06:53] LABS: Calcium 7.9 mg/dL (8.7-10.4); Chloride 108 mmol/L (98-107)
[2025-01-10 06:55] LABS: BUN/Creatinine Ratio 15.4 (10.0-20.0); Blood Urea Nitrogen 12 mg/dL (9-23)
[2025-01-10 07:01] LABS: Glucose 109 mg/dL (74-106)
[2025-01-10 12:42] LABS: Free T3 2.43 pg/mL (2.3-4.2)
[2025-01-10 12:45] LABS: Free T4 (Free Thyroxine) 1.33 ng/dL (0.89-1.76)
[2025-01-10] MEDS: SENNA 8.6 MG TAB PO ONE (14:45)
--- NOTE | 2025-01-10 19:12 | DVHPNRES ---
Progress Note Date Seen: Jan 10, 2025 Resident Creating Document: NICOLLE PORTER RESIDENT Medical Necessity Reason Pt with a Central, PICC or Fol: Yes The following are medically ne: Iglesias Catheter Subjective Review of Systems Josie Hobbs is 79-year-old female who presented to the ER with complain of abdominal pain, dizziness and fall. She reported feeling dizzy and fell after standing up from a sitting position in washroom, she reports falling down again as she started to walk down on hallway. She reported similar episodes where the patient get dizziness while certainly standing up however never had passing out episode. She reports hitting her head. Never happened he has event before. She also complained of left-lower quadrant abdominal pain associated with associated with constipation for the past 4 day. She reports reduced oral intake. She also complained of urinary retention, Iglesias placed in ER. She denied chest pain, shortness of bread, fever, chills. No any other complaint of sensory deficit, motor weakness, any other complaint. As per family and patient the patient is pretty active and able to ambulate without any support. Past medical history: Hypertension, diabetes on insulin, dyslipidemia, hypothyroidism Past surgical history: None Family's history: Noncontributory Personal history: The patient lives with family, sister take care of her at home. Home medication: Levothyroxine , benazepril, duloxetine, insulin, donepezil, gabapentin. Today the patient reports having frequency, urgency, dysuria. She denies any chest pain, shortness of breath, fever, abdominal pain or any other complaints today. Therapeutic enoxaparin was discontinued based on no indication found. Urine culture was sent. Objective vital signs Vital Sign Date Time Temp Pulse Resp B/P (MAP) Pulse Ox O2 Delivery O2 Flow Rate FiO2 01/10/25 13:00 97.3 72 19 127/71 (89) 95 97.3 01/10/25 08:00 Room Air* 0 21 Total Intake and Output 01/09/25 01/09/25 01/10/25 15:00 23:00 07:00 Intake Total 625 ml 375 ml 1900 ml Output Total 1250 ml Balance 625 ml 375 ml 650 ml medications Current Medications Medications Dose Ordered Sig/Claudy Route Start Time Stop Time Status Last Admin Dose Admin Piperacillin Sod/ Tazobactam Sod 100 ml @ 25 mls/hr Q8HR IV 01/08/25:00 01/10/25 14:37 25 MLS/HR Sodium Chloride 1,000 ml @ 100 mls/hr Q10H IV 01/08/25 21:00 01/10/25 06:06 100 MLS/HR Levothyroxine Sodium 75 mcg QAM@0600 PO 01/09/25 06:00 01/10/25 06:05 75 MCG Duloxetine HCl 30 mg DAILY PO 01/09/25 10:00 01/10/25 10:25 30 MG Donepezil HCl 10 mg HS PO 01/08/25 22:00 01/09/25 22:06 10 MG Diagnostic Test (Pha) 1 strip ACHS 01/08/25 22:00 01/10/25 17:25 1 STRIP Insulin Human Regular ACHS SC 01/08/25 22:00 01/10/25 11:12 3 UNITS Dextrose 50 ml UD PRN IV 01/08/25 21:00 Pantoprazole Sodium 40 mg DAILY IV 01/09/25 10:00 01/10/25 10:25 40 MG Polyethylene Glycol 17 gm DAILY PO 01/11/25 10:00 Examination Patient is lying on bed General Appearance: Alert, Oriented X3, Cooperative, Mild distress HEENT: Atraumatic, Mucous membranes moist/pink Respiratory: Clear to auscultation, Normal air movement, No added sounds Cardiovascular: Regular rate, Normal S1, Normal S2, No murmurs Abdominal/ : Active bowel sounds, Soft, no distention, suprapubic tenderness on palpation Extremities: No edema, Normal pulses, No tenderness/swelling Skin: No Significant rash, except past surgical scars Neuro: Normal speech, sensorimotor deficits none Psych/Mental Status: Mental status NL, Mood NL laboratory and microbiology Laboratory Tests 01/10/25 06:19 Test 01/10/25 06:19 Range/Units Serum Glucose 109 H 74-106 mg/dL Microbiology Date/Time Source Procedure Growth Status 01/08/25 16:17 Stool Stool Culture - Preliminary Resulted 01/08/25 16:17 Stool Shiga Toxin I & II Pending Resulted 01/08/25 16:01 Blood Blood Culture - Preliminary NO GROWTH AFTER 48 HOURS OF INCUBATION. Resulted Problem List/Assessment/Plan Problem List/Assessment/Plan Severe sepsis, likely due to gastroenteritis and complicated UTI Acute infectious gastroenteritis, bacterial/viral possible Complicated UTI, possible Urinary retention Labs show elevated WBC, lactic acid. UA positive for UTI Blood, stool culture ordered CT abdomen revealed gastritis Urine bacterial culture ordered Continue IV fluids, piperacillin tazobactam, cefepime Metabolic encephalopathy due to sepsis Ruled out CVA CT head negative for acute pathology Orthostatic vital signs within normal limits Lung nodule Ruled out PE Elevated D-dimer. Chest CT angio showed no pulmonary embolism, did show lung nodule. To follow up as outpatient. Discontinued therapeutic enoxaparin. Fecal impaction, improved. 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 History of asthma, no exacerbation GI prophylaxis: Not indicated DVT prophylaxis: Not indicated Diet: Cardiac Goals of care discussed with the patient for more than 27 minutes: Full code status Case discussed with , patient and RN: Patient is clinically improving, ordered urinary culture to evaluate resistant bacteria. Continue with Zosyn at this point. Ruled out pulmonary embolism, discontinued therapeutic enoxaparin, currently DVT prophylaxis with SCDs due to positive occult blood. Cosigning senior Resident: Ayana Mike, agree with discharge summary Plan discussed with: Patient, Other Date of Service: Jan 10, 2025 Billing Provider: LAZARUS REARDON MD Common Visit Codes: [id number] INP/OBS CARE(HIGH) NICOLLE PORTER RESIDENT Jan 10, 2025 19:12 AYANA MIKE RESIDENT Jan 11, 2025 06:49 LAZARUS REARDON MD Jan 13, 2025 22:39
[2025-01-10 20:10] LABS: Hematocrit 34.1 % (36.0-46.0); Hemoglobin 11.3 g/dL (12.2-16.2); Mean Corpuscular Hemoglobin 27.2 pg (28.0-32.0); Mean Corpuscular Volume 82.1 fL (80.0-100.0); Nucleated Red Blood Cells % 0.1 %
[2025-01-10 20:27] LABS: Alanine Aminotransferase 12 U/L (7-40); Albumin 3.5 g/dL (3.2-4.8); Alkaline Phosphatase 43 U/L (46-116); Anion Gap 8 (5-15); BUN/Creatinine Ratio 14.7 (10.0-20.0); Bilirubin, Total 0.6 mg/dL (0.2-1.0); Blood Urea Nitrogen 10 mg/dL (9-23); Calcium 8.0 mg/dL (8.7-10.4); Carbon Dioxide 23 mmol/L (20-31); Chloride 107 mmol/L (98-107); Glucose 153 mg/dL (74-106); Potassium 3.4 mmol/L (3.5-5.1); Sodium 138 mmol/L (136-145); Total Protein 5.8 g/dL (5.7-8.2)
[2025-01-10] MEDS: MORPHINE SULFATE INJ 2 MG/ml SYRG IV ONE (21:33)
[2025-01-11] VITALS (8 sets, daily range): BP systolic 115–141; BP diastolic 58–64; PULSE 65–76; RESP 16–20; TEMP 97.8–98.4; O2SAT 96–98
[2025-01-11] MEDS: POTASSIUM CHL 20 Meq TABLET PO ONE (06:52)
[2025-01-11 08:20] LABS: Hematocrit 32.0 % (36.0-46.0); Hemoglobin 10.7 g/dL (12.2-16.2); Mean Corpuscular Hemoglobin 27.5 pg (28.0-32.0); Mean Corpuscular Volume 82.2 fL (80.0-100.0); Nucleated Red Blood Cells % 0.0 %
[2025-01-11 08:36] LABS: Chloride 106 mmol/L (98-107); Potassium 3.6 mmol/L (3.5-5.1); Sodium 138 mmol/L (136-145)
[2025-01-11 08:37] LABS: Anion Gap 9 (5-15); Carbon Dioxide 23 mmol/L (20-31)
[2025-01-11 08:42] LABS: BUN/Creatinine Ratio 16.1 (10.0-20.0); Blood Urea Nitrogen 10 mg/dL (9-23)
[2025-01-11 08:44] LABS: Calcium 7.9 mg/dL (8.7-10.4); Glucose 115 mg/dL (74-106)
[2025-01-11] MEDS: POLYETHYLENE GLYCOL 17 GM PWDR PO SCH (10:00)
[2025-01-11 10:17] LABS: Ferritin 54.8 ng/mL (10-291)
[2025-01-11 11:16] LABS: Total Iron Binding Capacity 255.0 ug/dL (250-425)
[2025-01-11 11:17] LABS: Iron 16.0 ug/dL (50-170)
[2025-01-11] MEDS: ACETAMINOPHEN 325 MG TAB PO PRN (11:42)
--- NOTE | 2025-01-11 15:06 | DVHPNRES ---
Progress Note Date Seen: Jan 11, 2025 Resident Creating Document: NICOLLE CROOK RESIDENT Medical Necessity Reason Pt with a Central, PICC or Fol: Yes The following are medically ne: Iglesias Catheter Subjective Review of Systems Josie Hobbs is 79-year-old female who presented to the ER with complain of abdominal pain, dizziness and fall. She reported feeling dizzy and fell after standing up from a sitting position in washroom, she reports falling down again as she started to walk down on hallway. She reported similar episodes where the patient get dizziness while certainly standing up however never had passing out episode. She reports hitting her head. Never happened he has event before. She also complained of left-lower quadrant abdominal pain associated with associated with constipation for the past 4 day. She reports reduced oral intake. She also complained of urinary retention, Iglesias placed in ER. She denied chest pain, shortness of bread, fever, chills. No any other complaint of sensory deficit, motor weakness, any other complaint. As per family and patient the patient is pretty active and able to ambulate without any support. Past medical history: Hypertension, diabetes on insulin, dyslipidemia, hypothyroidism Past surgical history: None Family's history: Noncontributory Personal history: The patient lives with family, sister take care of her at home. Home medication: Levothyroxine , benazepril, duloxetine, insulin, donepezil, gabapentin. Today the patient reports having multiple episodes of diarrhea also abdominal pain, due to concern of possible abdominal abscess, Abdomino/pelvic CT scan with contrast ordered, NPO, pending c diff test Objective vital signs Vital Sign Date Time Temp Pulse Resp B/P (MAP) Pulse Ox O2 Delivery O2 Flow Rate FiO2 01/11/25 13:00 98.0 70 20 128/59 (82) 97 98.0 01/11/25 08:00 Nasal Cannula* 2 28 Total Intake and Output 01/10/25 01/10/25 01/11/25 15:00 23:00 07:00 Intake Total 100 ml 250 ml Output Total 250 ml 350 ml Balance -150 ml -100 ml medications Current Medications Medications Dose Ordered Sig/Claudy Route Start Time Stop Time Status Last Admin Dose Admin Piperacillin Sod/ Tazobactam Sod 100 ml @ 25 mls/hr Q8HR IV 01/08/25 22:00 01/11/25 06:04 25 MLS/HR Sodium Chloride 1,000 ml @ 100 mls/hr Q10H IV 01/08/25 21:00 01/11/25 10:45 100 MLS/HR Levothyroxine Sodium 75 mcg QAM@0600 PO 01/09/25 06:00 01/11/25 06:03 75 MCG Duloxetine HCl 30 mg DAILY PO 01/09/25 10:00 01/10/25 10:25 30 MG Donepezil HCl 10 mg HS PO 01/08/25 22:00 01/10/25 21:34 10 MG Diagnostic Test (Pha) 1 strip ACHS 01/08/25 22:00 01/11/25 10:49 1 STRIP Insulin Human Regular ACHS SC 01/08/25 22:00 01/11/25 06:07 2 UNITS Dextrose 50 ml UD PRN IV 01/08/25 21:00 Pantoprazole Sodium 40 mg DAILY IV 01/09/25 10:00 01/11/25 10:42 40 MG Acetaminophen 650 mg Q4HP PRN PO 01/11/25 10:45 01/11/25 11:42 650 MG Examination Patient is lying on bed General Appearance: Alert, Oriented X3, Cooperative, Mild distress HEENT: Atraumatic, Mucous membranes moist/pink Respiratory: Clear to auscultation, Normal air movement, No added sounds Cardiovascular: Regular rate, Normal S1, Normal S2, No murmurs Abdominal/ : Active bowel sounds, Soft, no distention, midgastric and suprapubic tenderness on palpation Extremities: No edema, Normal pulses, No tenderness/swelling Skin: No Significant rash, except past surgical scars Neuro: Normal speech, sensorimotor deficits none Psych/Mental Status: Mental status NL, Mood NL laboratory and microbiology Laboratory Tests 01/11/25 07:56 Test 01/11/25 07:56 Range/Units Serum Glucose 115 H 74-106 mg/dL Microbiology Date/Time Source Procedure Growth Status 01/08/25 16:17 Stool Stool Culture - Final Resulted 01/08/25 16:17 Stool Shiga Toxin I & II Pending Resulted 01/08/25 16:01 Blood Blood Culture - Preliminary NO GROWTH AFTER 48 HOURS OF INCUBATION. Resulted Problem List/Assessment/Plan Problem List/Assessment/Plan #Severe sepsis, likely due to gastroenteritis and complicated UTI #Acute infectious gastroenteritis, bacterial/viral possible #Complicated UTI, possible #Urinary retention, resolved #Rule out abdominal abscess, diverticulitis #Intractable abdominal pain NPO Labs show elevated WBC, lactic acid. UA positive for UTI Blood, stool culture negative pending c diff New CT scan with contrast to rule out abscess CT abdomen revealed gastritis Urine bacterial culture ordered Continue IV fluids and piperacillin tazobactam #Metabolic encephalopathy due to sepsis #Ruled out CVA CT head negative for acute pathology Orthostatic vital signs within normal limits #Lung nodule #Ruled out PE Elevated D-dimer. Chest CT angio showed no pulmonary embolism, did show lung nodule. To follow up as outpatient. Discontinued therapeutic enoxaparin. 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 Diet: NPO Goals of care discussed with the patient for more than 27 minutes: Full code status Case discussed with Dr.Johan Jean senior Resident: Ayana Mike, agree with progress note. Addendum abdomen and pelvis CT with IV contrast was ordered, pending. Plan discussed with: Patient, Other (rn) My Orders My Orders Orders - NICOLLE CROOK RESIDENT Procedure Category Date Status Time Sequential DIXIE 01/11/25 In Process Compression Device 06:44 Npo (Nothing By DIET 01/11/25 Transmitted Mouth) Diet Dinner Ct Abd Pelvis W CT 01/11/25 Logged Con-Oral & Iv 14:59 Dietary Evaluation Review Comments: 1. Advance to diet when medically feasible 2. TPN if EN/GI unaccessible >7 days 3. FU with GI consults and lab values Expected Outcomes/Goals: Recover from sepsis Maintian wt Date of Service: Jan 11, 2025 Billing Provider: LAZARUS REARDON MD Common Visit Codes: [id number] INP/OBS CARE(HIGH) NICOLLE CROOK RESIDENT Jan 11, 2025 15:05 AYANA MIKE Jan 12, 2025 00:38 LAZARUS REARDON MD Jan 18, 2025 21:17
[2025-01-11] MEDS: OMNIPAQUE 12mg/ml 500ml ORAL SOLUTION PO ONE (15:08)
[2025-01-11] MEDS: IOHEXOL 300 MG/ML 100ML BOTTLE IJ ONE (17:44)
--- NOTE | 2025-01-11 20:27 | DVH ---
COMPUTERIZED TOMOGRAPHY ABDOMEN AND PELVIS WITH CONTRAST REASON FOR EXAM: rule out abdominal abcess or diverticulitis COMPARISON: None TECHNIQUE: The exam was performed on a Multidetector scanner. Spiral scans were acquired from the larisa phragm to the symphysis pubis after administration of IV contrast. 2-D coronal and sagittal reformatt ed images were provided. Radiation optimization: All CT scans at this facility use at least one of th freddy dose optimization techniques: Automated exposure control mA and/or kV adjustment per patient size (includes targeted exams where dose is matched to clinical indication) or iterative reconstruction. CONTRAST ADMINISTRATION: 94 mL omnipaque 300 intravenously. 500 cc omnipaque 12 by mouth. RADIATION DOSE: CTDI: 14.07 mGy DLP: 721.37 mGy-cm FINDINGS: Respiratory motion artifact degrades evaluation of the lung bases. There is subsegmental dependent co nsolidation in bilateral lower lobes, [id number]-iufn-left. There are trace bilateral pleural effu sions, ordpf-pbegusc-prml-left. The spleen is not enlarged. Evaluation of the abdomen and pelvis is degraded by streak artifact from the patient's arms. The liver is normal in size and contour. The hepatic veins are patent. The port al vein is patent. No calcified gallstone is identified. The pancreas is grossly unremarkable. The ad renal glands are normal. The kidneys enhance symmetrically. No solid renal mass is identified. Ther e is no hydronephrosis of either kidney. There is no abdominal aortic aneurysm. No pathologic lymphad enopathy is identified by size criteria. The uterus is grossly unremarkable. The ovaries are not def initely seen. There is a small amount of free fluid in the dependent pelvis. The urinary bladder is collapsed about a Iglesias catheter balloon. The rectum and distal sigmoid are distended with a large am ount of stool. There is circumferential thickening of the entirety of the descending colon consistent with colitis. There is mild sigmoid diverticulosis. The appendix is normal. There is no distention of the small bowel to suggest small bowel obstruction. No intra-abdominal abscess is identified. No a cute osseous abnormality is identified. IMPRESSION: Findings consistent with colitis of the entire length of the descending colon. No intra-abdominal abscess is identified. Large amount of stool distending the rectum and distal sigmoid. Normal appendix
[2025-01-12] VITALS (8 sets, daily range): BP systolic 118–133; BP diastolic 52–64; PULSE 64–79; RESP 16–75; TEMP 97.1–98.3; O2SAT 18–100
[2025-01-12 06:55] LABS: Hematocrit 32.7 % (36.0-46.0); Hemoglobin 10.8 g/dL (12.2-16.2); Mean Corpuscular Hemoglobin 27.2 pg (28.0-32.0); Mean Corpuscular Volume 82.3 fL (80.0-100.0); Nucleated Red Blood Cells % 0.1 %
[2025-01-12 07:07] LABS: Anion Gap 9 (5-15); Carbon Dioxide 22 mmol/L (20-31); Sodium 139 mmol/L (136-145)
[2025-01-12 07:09] LABS: Calcium 8.0 mg/dL (8.7-10.4); Chloride 108 mmol/L (98-107); Potassium 3.2 mmol/L (3.5-5.1)
[2025-01-12 07:13] LABS: BUN/Creatinine Ratio 11.7 (10.0-20.0); Glucose 99 mg/dL (74-106)
[2025-01-12 07:16] LABS: Blood Urea Nitrogen 7 mg/dL (9-23)
[2025-01-12] MEDS: POTASSIUM CHL 20MEQ/100ML 100 ML IV ONE (10:17)
--- NOTE | 2025-01-12 17:15 | DVHPNRES ---
Progress Note Date Seen: Jan 12, 2025 Resident Creating Document: NICOLLE PORTER RESIDENT Medical Necessity Reason Pt with a Central, PICC or Fol: Yes The following are medically ne: Iglesias Catheter Subjective Review of Systems Josie Hobbs is 79-year-old female who presented to the ER with complain of abdominal pain, dizziness and fall. She reported feeling dizzy and fell after standing up from a sitting position in washroom, she reports falling down again as she started to walk down on hallway. She reported similar episodes where the patient get dizziness while certainly standing up however never had passing out episode. She reports hitting her head. Never happened he has event before. She also complained of left-lower quadrant abdominal pain associated with associated with constipation for the past 4 day. She reports reduced oral intake. She also complained of urinary retention, Iglesias placed in ER. She denied chest pain, shortness of bread, fever, chills. No any other complaint of sensory deficit, motor weakness, any other complaint. As per family and patient the patient is pretty active and able to ambulate without any support. Past medical history: Hypertension, diabetes on insulin, dyslipidemia, hypothyroidism Past surgical history: None Family's history: Noncontributory Personal history: The patient lives with family, sister take care of her at home. Home medication: Levothyroxine , benazepril, duloxetine, insulin, donepezil, gabapentin. 01/12/2025 interval events: The patient was seen and examined at the bedside. The patient complains of left-sided headache, she reports having 4-5 times of diarrhea since last night, foul smelling, not mixed with blood. She denies any chest pain, shortness of breath, fever or any other complaints today. Objective vital signs Vital Sign Date Time Temp Pulse Resp B/P (MAP) Pulse Ox O2 Delivery O2 Flow Rate FiO2 01/12/25 13:00 98.1 71 18 131/58 (82) 98 98.1 01/12/25 08:10 Nasal Cannula* 2 28 Total Intake and Output 01/11/25 01/11/25 01/12/25 15:00 23:00 07:00 Intake Total 100 ml 340 ml 1440 ml Output Total 804 ml 900 ml Balance 100 ml -464 ml 540 ml medications Current Medications Medications Dose Ordered Sig/Claudy Route Start Time Stop Time Status Last Admin Dose Admin Piperacillin Sod/ Tazobactam Sod 100 ml @ 25 mls/hr Q8HR IV 01/08/25 22:00 01/12/25 16:08 25 MLS/HR Sodium Chloride 1,000 ml @ 100 mls/hr Q10H IV 01/08/25 21:00 01/12/25 06:16 100 MLS/HR Levothyroxine Sodium 75 mcg QAM@0600 PO 01/09/25 06:00 01/12/25 06:17 75 MCG Duloxetine HCl 30 mg DAILY PO 01/09/25 10:00 01/10/25 10:25 30 MG Donepezil HCl 10 mg HS PO 01/08/25 22:00 01/11/25 21:37 10 MG Diagnostic Test (Pha) 1 strip ACHS 01/08/25 22:00 01/12/25 17:02 1 STRIP Insulin Human Regular ACHS SC 01/08/25 22:00 01/11/25 18:38 3 UNITS Dextrose 50 ml UD PRN IV 01/08/25 21:00 Pantoprazole Sodium 40 mg DAILY IV 01/09/25 10:00 01/12/25 10:19 40 MG Acetaminophen 650 mg Q4HP PRN PO 01/11/25 10:45 01/11/25 11:42 650 MG Metronidazole 100 ml @ 100 mls/hr Q8HR IV 01/12/25 14:00 01/12/25 13:32 100 MLS/HR Examination Pt is lying on bed General Appearance: Alert, Oriented X3, Cooperative, Mild distress HEENT: Atraumatic, Mucous membranes moist/pink Respiratory: Clear to auscultation, Normal air movement, No added sounds Cardiovascular: Regular rate, Normal S1, Normal S2, No murmurs Abdominal/ : Active bowel sounds, Soft, no distention, left upper and lower quadrant tenderness Extremities: No edema, Normal pulses, No tenderness/swelling Skin: No Significant rash, except past surgical scars Neuro: Normal speech, sensorimotor deficits none Psych/Mental Status: Mental status NL, Mood NL Nurse was there as power transformer assembler during examination laboratory and microbiology Laboratory Tests 01/12/25 06:06 Test 01/12/25 06:06 Range/Units Serum Glucose 99 74-106 mg/dL Microbiology Date/Time Source Procedure Growth Status 01/11/25 03:35 Voided Urine Urine Culture - Preliminary Resulted 01/08/25 16:17 Stool Stool Culture - Final Resulted 01/08/25 16:17 Stool Shiga Toxin I & II Pending Resulted 01/08/25 16:01 Blood Blood Culture - Preliminary NO GROWTH AFTER 72 HOURS OF INCUBATION. Resulted Problem List/Assessment/Plan Problem List/Assessment/Plan #Severe sepsis, likely due to below #Acute infectious colitis and gastroenteritis, bacterial #Complicated UTI, possible #Urinary retention Labs show elevated WBC, lactic acid. UA positive for UTI Blood, stool culture ordered CT abdomen and pelvis:Findings consistent with colitis of the entire length of the descending colon.No intra-abdominal abscess is identified.Large amount of stool distending the rectum and distal sigmoid.Normal appendix Urine bacterial culture ordered Continue IV fluids, piperacillin tazobactam and metronidazole #Diarrhea likely due to C diff -stool studies sent -metronidazole IV TDS started Syncope likely due to above Hemorrhagic stroke, ruled out Rule out orthostatic hypotension CT head negative for acute pathology Ordered orthostatic vitals Rule out PE Elevated D-dimer. CT angio: No PE Fecal impaction, improved. 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 Diet: NPO Goals of care discussed with the patient for more than 27 minutes: Full code status Cosigned by Dr Saravia, PGY2, resident Case discussed with , patient and RN Plan discussed with: Patient, Other (RN) Dietary Evaluation Review Comments: 1. Advance to diet when medically feasible 2. TPN if EN/GI unaccessible >7 days 3. FU with GI consults and lab values Expected Outcomes/Goals: Recover from sepsis Maintian wt Date of Service: Jan 12, 2025 Billing Provider: LAZARUS REARDON MD Common Visit Codes: [id number] INP/OBS CARE(HIGH) NICOLLE PORTER RESIDENT Jan 12, 2025 17:15 NICOLLE CROOK RESIDENT Jan 13, 2025 07:45 LAZARUS REARDON MD Jan 18, 2025 21:31
[2025-01-13 05:00] VITALS: BP 134/70; PULSE 63; RESP 18; TEMP 98.2; O2SAT 99
[2025-01-13 06:03] LABS: Hematocrit 31.4 % (36.0-46.0); Hemoglobin 10.4 g/dL (12.2-16.2); Mean Corpuscular Hemoglobin 27.0 pg (28.0-32.0); Mean Corpuscular Volume 81.6 fL (80.0-100.0); Nucleated Red Blood Cells % 0.0 %
[2025-01-13 06:19] LABS: Alanine Aminotransferase 19 U/L (7-40); Albumin 3.1 g/dL (3.2-4.8); Alkaline Phosphatase 59 U/L (46-116); Anion Gap 8 (5-15); BUN/Creatinine Ratio 8.3 (10.0-20.0); Blood Urea Nitrogen < 5 mg/dL (9-23); Calcium 7.9 mg/dL (8.7-10.4); Carbon Dioxide 24 mmol/L (20-31); Chloride 108 mmol/L (98-107); Glucose 102 mg/dL (74-106); Potassium 3.2 mmol/L (3.5-5.1); Sodium 140 mmol/L (136-145); Total Protein 5.5 g/dL (5.7-8.2)
[2025-01-13 06:22] LABS: Bilirubin, Total 0.2 mg/dL (0.2-1.0)
[2025-01-13 07:45] VITALS: PULSE 64; PULSE 67; RESP 18; O2SAT 97
[2025-01-13 09:00] VITALS: BP 142/72; PULSE 67; RESP 18; TEMP 97.9; O2SAT 97
[2025-01-13] MEDS: POTASSIUM CHL 20MEQ/100ML 100 ML IV SCH (10:07)
[2025-01-13 13:00] VITALS: BP 152/80; PULSE 67; RESP 18; TEMP 98; O2SAT 98
[2025-01-13 17:00] VITALS: BP 140/69; PULSE 67; RESP 17; TEMP 98.1; O2SAT 98
--- NOTE | 2025-01-13 20:15 | DVHPNRES ---
Progress Note Date Seen: Jan 13, 2025 Resident Creating Document: NICOLLE PORTER RESIDENT Medical Necessity Reason Pt with a Central, PICC or Fol: Yes The following are medically ne: Iglesias Catheter Subjective Review of Systems Josie Hobbs is 79-year-old female who presented to the ER with complain of abdominal pain, dizziness and fall. She reported feeling dizzy and fell after standing up from a sitting position in washroom, she reports falling down again as she started to walk down on hallway. She reported similar episodes where the patient get dizziness while certainly standing up however never had passing out episode. She reports hitting her head. Never happened he has event before. She also complained of left-lower quadrant abdominal pain associated with associated with constipation for the past 4 day. She reports reduced oral intake. She also complained of urinary retention, Iglesias placed in ER. She denied chest pain, shortness of bread, fever, chills. No any other complaint of sensory deficit, motor weakness, any other complaint. As per family and patient the patient is pretty active and able to ambulate without any support. Past medical history: Hypertension, diabetes on insulin, dyslipidemia, hypothyroidism Past surgical history: None Family's history: Noncontributory Personal history: The patient lives with family, sister take care of her at home. Home medication: Levothyroxine , benazepril, duloxetine, insulin, donepezil, gabapentin. 01/13/2025 interval events: The patient was seen and examined at the bedside. Reports having 1 episode of diarrhea, not mixed with blood and abdominal pain improved since yesterday. She denies any chest pain, shortness of breath, fever or any other complaints today. Objective vital signs Vital Sign Date Time Temp Pulse Resp B/P (MAP) Pulse Ox O2 Delivery O2 Flow Rate FiO2 01/13/25 17:00 98.1 67 17 140/69 (92) 98 98.1 01/13/25 07:45 Nasal Cannula* 2 28 Total Intake and Output 01/12/25 01/12/25 01/13/25 15:00 23:00 07:00 Intake Total 400 ml 360 ml 1600 ml Output Total 975 ml Balance 400 ml 360 ml 625 ml medications Current Medications Medications Dose Ordered Sig/Claudy Route Start Time Stop Time Status Last Admin Dose Admin Piperacillin Sod/ Tazobactam Sod 100 ml @ 25 mls/hr Q8HR IV 8/23/25 22:00 01/13/25 10:07 25 MLS/HR Sodium Chloride 1,000 ml @ 100 mls/hr Q10H IV 01/08/25 21:00 01/13/25 01:00 100 MLS/HR Levothyroxine Sodium 75 mcg QAM@0600 PO 01/09/25 06:00 01/13/25 06:26 75 MCG Duloxetine HCl 30 mg DAILY PO 01/09/25 10:00 01/13/25 10:08 30 MG Donepezil HCl 10 mg HS PO 01/08/25 22:00 01/12/25 21:37 10 MG Diagnostic Test (Pha) 1 strip ACHS 01/08/25 22:00 01/13/25 17:00 1 STRIP Insulin Human Regular ACHS SC 01/08/25 22:00 01/13/25 12:08 3 UNITS Dextrose 50 ml UD PRN IV 01/08/25 21:00 Pantoprazole Sodium 40 mg DAILY IV 01/09/25 10:00 01/13/25 10:08 40 MG Acetaminophen 650 mg Q4HP PRN PO 01/11/25 10:45 01/11/25 11:42 650 MG Metronidazole 100 ml @ 100 mls/hr Q8HR IV 01/12/25 14:00 01/13/25 14:47 100 MLS/HR Examination Pt is lying on bed General Appearance: Alert, Oriented X3, Cooperative, Mild distress HEENT: Atraumatic, Mucous membranes moist/pink Respiratory: Clear to auscultation, Normal air movement, No added sounds Cardiovascular: Regular rate, Normal S1, Normal S2, No murmurs Abdominal/ : Active bowel sounds, Soft, no distention, mild tenderness over left upper and lower quadrants Extremities: No edema, Normal pulses, No tenderness/swelling Skin: No Significant rash, except past surgical scars Neuro: Normal speech, sensorimotor deficits none Psych/Mental Status: Mental status NL, Mood NL Nurse was there as bartender manager during examination laboratory and microbiology Laboratory Tests 01/13/25 05:11 Test 01/13/25 05:11 Range/Units Serum Glucose 102 74-106 mg/dL Microbiology Date/Time Source Procedure Growth Status 01/12/25 16:50 Stool Clostridium difficile Toxin Assay - Final Complete 01/11/25 03:35 Voided Urine Urine Culture - Final Complete 01/08/25 16:01 Blood Blood Culture - Final NO GROWTH AFTER 5 DAYS OF INCUBATION. Complete Labs and/or images reviewed: Labs reviewed by me, Image(s) reviewed by me Problem List/Assessment/Plan Problem List/Assessment/Plan Severe sepsis, likely due to Acute infectious colitis due to c difficile Complicated UTI, possible Urinary retention, resolved Labs show elevated WBC, lactic acid. UA positive for UTI CT abdomen and pelvis:Findings consistent with colitis of the entire length of the descending colon.No intra-abdominal abscess is identified.Large amount of stool distending the rectum and distal sigmoid.Normal appendix Urine bacterial culture: No growth Blood culture: No growth Stool studies: Toxigenic C. difficile (toxin B gene) DNA detected Continue IV fluids, piperacillin tazobactam, IV metronidazole and oral vancomycin Stool culture: Many growth: Normal Enteric Eda. No Campylobacter antigen detected. No Salmonella or Shigella species isolated. No E. coli O157 isolate Syncope likely due to above Hemorrhagic stroke, ruled out Rule out orthostatic hypotension CT head negative for acute pathology Ordered orthostatic vitals: normal Rule out PE Elevated D-dimer. 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 Advance to diet when medically feasible 2. TPN if EN/GI unaccessible >7 days 3. FU with GI consults and lab values Expected Outcomes/Goals: Recover from sepsis NICOLLE Castro RESIDENT Jan 13, 2025 20:15 NICOLLE CROOK RESIDENT Jan 14, 2025 08:32 LUIS MANUEL MIKE RESIDENT Jan 14, 2025 21:19
[2025-01-13 21:00] VITALS: BP 147/70; PULSE 64; RESP 16; TEMP 98.7; O2SAT 98
[2025-01-14] VITALS (8 sets, daily range): BP systolic 136–153; BP diastolic 63–77; PULSE 55–68; RESP 14–19; TEMP 97.4–98.2; O2SAT 94–100
[2025-01-14 06:48] LABS: Hematocrit 31.2 % (36.0-46.0); Hemoglobin 10.5 g/dL (12.2-16.2); Mean Corpuscular Hemoglobin 27.4 pg (28.0-32.0); Mean Corpuscular Volume 81.5 fL (80.0-100.0); Nucleated Red Blood Cells % 0.1 %
[2025-01-14 07:03] LABS: Alanine Aminotransferase 19 U/L (7-40); Albumin 3.3 g/dL (3.2-4.8); Alkaline Phosphatase 59 U/L (46-116); Anion Gap 9 (5-15); Carbon Dioxide 24 mmol/L (20-31); Glucose 105 mg/dL (74-106); Sodium 140 mmol/L (136-145)
[2025-01-14] MEDS: ENOXAPARIN SOD 40 MG/0.4 ML SYRINGE SC ONE (07:04)
[2025-01-14] MEDS: VANCOMYCIN HCL 125 MG CAP PO SCH (07:06)
[2025-01-14 07:10] LABS: BUN/Creatinine Ratio 9.6 (10.0-20.0); Bilirubin, Total 0.2 mg/dL (0.2-1.0); Blood Urea Nitrogen < 5 mg/dL (9-23); Calcium 8.3 mg/dL (8.7-10.4); Chloride 107 mmol/L (98-107); Potassium 3.3 mmol/L (3.5-5.1); Total Protein 5.7 g/dL (5.7-8.2)
[2025-01-14] MEDS ORDERED: POTASSIUM CHL 20MEQ/100ML 100 ML IV ONE (10:15)
[2025-01-14] MEDS: POTASSIUM CHL 20MEQ/100ML 100 ML IV ONE (12:19)
--- NOTE | 2025-01-14 16:45 | DVHPNRES ---
Progress Note Date Seen: Jan 14, 2025 Resident Creating Document: NICOLLE PORTER RESIDENT Medical Necessity Reason Pt with a Central, PICC or Fol: No Subjective Review of Systems Josie Hobbs is 79-year-old female who presented to the ER with complain of abdominal pain, dizziness and fall. She reported feeling dizzy and fell after standing up from a sitting position in washroom, she reports falling down again as she started to walk down on hallway. She reported similar episodes where the patient get dizziness while certainly standing up however never had passing out episode. She reports hitting her head. Never happened he has event before. She also complained of left-lower quadrant abdominal pain associated with associated with constipation for the past 4 day. She reports reduced oral intake. She also complained of urinary retention, Iglesias placed in ER. She denied chest pain, shortness of bread, fever, chills. No any other complaint of sensory deficit, motor weakness, any other complaint. As per family and patient the patient is pretty active and able to ambulate without any support. Past medical history: Hypertension, diabetes on insulin, dyslipidemia, hypothyroidism Past surgical history: None Family's history: Noncontributory Personal history: The patient lives with family, sister take care of her at home. Home medication: Levothyroxine , benazepril, duloxetine, insulin, donepezil, gabapentin. 01/14/2025 interval events: Patient reports having mild abdominal pain which resolves with bowel movement. She past 1 or 2 loose stools since yesterday. Denies any chest pain, shortness of breath, fever, nausea, vomiting or any other complaints today. Objective vital signs Vital Sign Date Time Temp Pulse Resp B/P (MAP) Pulse Ox O2 Delivery O2 Flow Rate FiO2 01/14/25 13:00 98.1 63 16 142/63 (89) 98 98.1 01/14/25 08:00 Nasal Cannula* 2 28 Total Intake and Output 01/13/25 01/13/25 01/14/25 15:00 23:00 07:00 Intake Total 100 ml 800 ml 200 ml Output Total 750 ml Balance 100 ml 50 ml 200 ml medications Current Medications Medications Dose Ordered Sig/Claudy Route Start Time Stop Time Status Last Admin Dose Admin Sodium Chloride 1,000 ml @ 100 mls/hr Q10H IV 01/08/25 21:00 01/14/25 07:06 100 MLS/HR Levothyroxine Sodium 75 mcg QAM@0600 PO 01/09/25 06:00 01/14/25 07:06 75 MCG Duloxetine HCl 30 mg DAILY PO 01/09/25 10:00 01/14/25 09:48 30 MG Donepezil HCl 10 mg HS PO 01/08/25 22:00 01/13/25 22:49 10 MG Diagnostic Test (Pha) 1 strip ACHS 01/08/25 22:00 01/14/25 11:30 1 STRIP Insulin Human Regular ACHS SC 01/08/25 22:00 01/14/25 12:10 3 UNITS Dextrose 50 ml UD PRN IV 01/08/25 21:00 Pantoprazole Sodium 40 mg DAILY IV 01/09/25 10:00 01/14/25 09:48 40 MG Acetaminophen 650 mg Q4HP PRN PO 01/11/25 10:45 01/11/25 11:42 650 MG Metronidazole 100 ml @ 100 mls/hr Q8HR IV 01/12/25 14:00 01/14/25 15:30 100 MLS/HR Vancomycin HCl 125 mg QID PO 01/14/25 06:00 01/14/25 12:19 125 MG Enoxaparin Sodium 40 mg DAILY SC 01/15/25 10:00 Examination Pt is lying on bed General Appearance: Alert, Oriented X3, Cooperative, Mild distress HEENT: Atraumatic, Mucous membranes moist/pink Respiratory: Clear to auscultation, Normal air movement, No added sounds Cardiovascular: Regular rate, Normal S1, Normal S2, No murmurs Abdominal/ : Active bowel sounds, Soft, no distention, mild left upper and lower quadrant tenderness Extremities: No edema, Normal pulses, No tenderness/swelling Skin: No Significant rash, except past surgical scars Neuro: Normal speech, sensorimotor deficits none Psych/Mental Status: Mental status NL, Mood NL Nurse was there as automobile upholsterer during examination laboratory and microbiology Laboratory Tests 01/14/25 05:58 Test 01/14/25 05:58 Range/Units Serum Glucose 105 74-106 mg/dL Microbiology Date/Time Source Procedure Growth Status 01/12/25 16:50 Stool Clostridium difficile Toxin Assay - Final Complete 01/11/25 03:35 Voided Urine Urine Culture - Final Complete 01/08/25 16:01 Blood Blood Culture - Final NO GROWTH AFTER 5 DAYS OF INCUBATION. Complete Labs and/or images reviewed: Labs reviewed by me, Image(s) reviewed by me Problem List/Assessment/Plan Problem List/Assessment/Plan Severe sepsis, likely due to Acute infectious colitis due to c difficile Complicated UTI, possible Urinary retention, resolved Labs show elevated WBC, lactic acid. UA positive for UTI CT abdomen and pelvis:Findings consistent with colitis of the entire length of the descending colon.No intra-abdominal abscess is identified.Large amount of stool distending the rectum and distal sigmoid.Normal appendix Urine bacterial culture: No growth Blood culture: No growth Continue IV fluids, metronidazole IV and vancomycin p.o.. Discontinued piperacillin tazobactam Stool studies: Toxigenic C. difficile (toxin B gene) DNA detected Stool culture: Many growth: Normal Enteric Eda. No Campylobacter antigen detected. No Salmonella or Shigella species isolated. No E. coli O157 isolate Syncope likely due to above Hemorrhagic stroke, ruled out Rule out orthostatic hypotension CT head negative for acute pathology Ordered orthostatic vitals: normal Rule out PE Elevated D-dimer. 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 Hypothyroidism Home medications reconciled Sliding scale insulin Hemoglobin A1c 6.9 Stool occult positive, no active GI bleed, secondary to colitis History of asthma, no exacerbation GI prophylaxis: protonix DVT prophylaxis: enoxaparin Diet: Cardiac Goals of care discussed with the patient for more than 27 minutes: Full code status Case discussed with , patient and RN Plan discussed with: Patient, Other (RN) My Orders My Orders Orders - NICOLLE PORTER RESIDENT Procedure Category Date Status Time Enoxaparin Sodium PHA 01/15/25 In Process (Lovenox) 10:00 Basic Metabolic Panel LAB 01/15/25 Verified 04:00 Complete Blood Count LAB 01/15/25 Verified 04:00 Dietary Evaluation Review Comments: 1. Advance to diet when medically feasible 2. TPN if EN/GI unaccessible >7 days 3. FU with GI consults and lab values Expected Outcomes/Goals: Recover from sepsis NICOLLE Castro RESIDENT Jan 14, 2025 16:45 NICOLLE CROOK Jan 14, 2025 20:17 LUIS MANUEL MIKE RESIDENT Jan 14, 2025 21:21
[2025-01-15] VITALS (7 sets, daily range): BP systolic 148–153; BP diastolic 69–76; PULSE 54–61; RESP 15–17; TEMP 97.4–98.2; O2SAT 97–98
[2025-01-15 06:55] LABS: Chloride 106 mmol/L (98-107); Sodium 139 mmol/L (136-145)
[2025-01-15 06:56] LABS: Anion Gap 9 (5-15); Carbon Dioxide 24 mmol/L (20-31)
[2025-01-15 07:00] LABS: Calcium 8.1 mg/dL (8.7-10.4); Potassium 3.4 mmol/L (3.5-5.1)
[2025-01-15 07:01] LABS: BUN/Creatinine Ratio 9.4 (10.0-20.0); Glucose 97 mg/dL (74-106)
[2025-01-15 07:05] LABS: Hematocrit 31.3 % (36.0-46.0); Hemoglobin 10.7 g/dL (12.2-16.2); Mean Corpuscular Hemoglobin 27.7 pg (28.0-32.0); Mean Corpuscular Volume 81.3 fL (80.0-100.0); Nucleated Red Blood Cells % 0.0 %
[2025-01-15 07:07] LABS: Blood Urea Nitrogen 5 mg/dL (9-23)
--- NOTE | 2025-01-15 09:39 | DVHPNRES ---
Progress Note Date Seen: Jan 15, 2025 Resident Creating Document: NICOLLE PORTER RESIDENT Medical Necessity Reason Pt with a Central, PICC or Fol: No Subjective Review of Systems Josie Hobbs is 79-year-old female who presented to the ER with complain of abdominal pain, dizziness and fall. She reported feeling dizzy and fell after standing up from a sitting position in washroom, she reports falling down again as she started to walk down on hallway. She reported similar episodes where the patient get dizziness while certainly standing up however never had passing out episode. She reports hitting her head. Never happened he has event before. She also complained of left-lower quadrant abdominal pain associated with associated with constipation for the past 4 day. She reports reduced oral intake. She also complained of urinary retention, Iglesias placed in ER. She denied chest pain, shortness of bread, fever, chills. No any other complaint of sensory deficit, motor weakness, any other complaint. As per family and patient the patient is pretty active and able to ambulate without any support. Past medical history: Hypertension, diabetes on insulin, dyslipidemia, hypothyroidism Past surgical history: None Family's history: Noncontributory Personal history: The patient lives with family, sister take care of her at home. Home medication: Levothyroxine , benazepril, duloxetine, insulin, donepezil, gabapentin. Patient was seen and examined at the bedside. Overnight events were reviewed. The patient reports having 2 episodes of loose stool and 1 episode of vomiting. She feels weak. X-ray KUB was ordered due to concern for toxic megacolon. Which came back normal. Denies any chest pain, shortness of breath, fever, nausea, vomiting or any other complaints today. Objective vital signs Vital Sign Date Time Temp Pulse Resp B/P (MAP) Pulse Ox O2 Delivery O2 Flow Rate FiO2 01/15/25 08:40 97.8 55 16 150/69 (96) 98 97.8 01/14/25 20:00 Room Air* 0 21 Total Intake and Output 01/14/25 01/14/25 01/15/25 15:00 23:00 07:00 Intake Total 100 ml 520 ml 460 ml Output Total 600 ml 620 ml Balance 100 ml -80 ml -160 ml medications Current Medications Medications Dose Ordered Sig/Claudy Route Start Time Stop Time Status Last Admin Dose Admin Sodium Chloride 1,000 ml @ 100 mls/hr Q10H IV 01/08/25 21:00 01/15/25 03:00 100 MLS/HR Levothyroxine Sodium 75 mcg QAM@0600 PO 01/09/25 06:00 01/15/25 06:19 75 MCG Duloxetine HCl 30 mg DAILY PO 01/09/25 10:00 01/14/25 09:48 30 MG Donepezil HCl 10 mg HS PO 01/08/25 22:00 01/14/25 21:18 10 MG Diagnostic Test (Pha) 1 strip ACHS 01/08/25 22:00 01/15/25 06:22 1 STRIP Insulin Human Regular ACHS SC 01/08/25 22:00 01/14/25 12:10 3 UNITS Dextrose 50 ml UD PRN IV 01/08/25 21:00 Pantoprazole Sodium 40 mg DAILY IV 01/09/25 10:00 01/14/25 09:48 40 MG Acetaminophen 650 mg Q4HP PRN PO 01/11/25 10:45 01/11/25 11:42 650 MG Metronidazole 100 ml @ 100 mls/hr Q8HR IV 01/12/25 14:00 01/15/25 06:19 100 MLS/HR Vancomycin HCl 125 mg QID PO 01/14/25 06:00 01/15/25 06:19 125 MG Enoxaparin Sodium 40 mg DAILY SC 01/15/25 10:00 Potassium Chloride 100 ml @ 50 mls/hr Q2H IV 01/15/25 07:45 01/15/25 11:44 Examination Pt is lying on bed General Appearance: Alert, Oriented X3, Cooperative, Mild distress HEENT: Atraumatic, Mucous membranes moist/pink Respiratory: Clear to auscultation, Normal air movement, No added sounds Cardiovascular: Regular rate, Normal S1, Normal S2, No murmurs Abdominal/ : Active bowel sounds, Soft, no distention, mild upper and lower abdominal tenderness Extremities: No edema, Normal pulses, No tenderness/swelling Skin: No Significant rash, except past surgical scars Neuro: Normal speech, sensorimotor deficits none Psych/Mental Status: Mental status NL, Mood NL Nurse was there as delicatessen goods stock clerk during examination laboratory and microbiology Laboratory Tests 01/15/25 05:52 Test 01/15/25 05:52 Range/Units Serum Glucose 97 74-106 mg/dL Microbiology Date/Time Source Procedure Growth Status 01/12/25 16:50 Stool Clostridium difficile Toxin Assay - Final Complete 01/11/25 03:35 Voided Urine Urine Culture - Final Complete 01/08/25 16:01 Blood Blood Culture - Final NO GROWTH AFTER 5 DAYS OF INCUBATION. Complete Labs and/or images reviewed: Labs reviewed by me, Image(s) reviewed by me Problem List/Assessment/Plan Problem List/Assessment/Plan Severe sepsis, likely due to Acute infectious colitis due to c difficile Complicated UTI, possible Urinary retention, resolved Labs show elevated WBC, lactic acid. UA positive for UTI CT abdomen and pelvis:Findings consistent with colitis of the entire length of the descending colon.No intra-abdominal abscess is identified.Large amount of stool distending the rectum and distal sigmoid.Normal appendix Urine bacterial culture: No growth Blood culture: No growth Continue IV fluids, metronidazole IV and vancomycin p.o.. Discontinued piperacillin tazobactam Stool studies: Toxigenic C. difficile (toxin B gene) DNA detected X-ray KUB to rule out toxic colon was normal, was ordered today because the patient started to have emesis Stool culture: Many growth: Normal Enteric Eda. No Campylobacter antigen detected. No Salmonella or Shigella species isolated. No E. coli O157 isolate Syncope likely due to above Hemorrhagic stroke, ruled out Rule out orthostatic hypotension CT head negative for acute pathology Ordered orthostatic vitals: normal Rule out PE Elevated D-dimer. 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 Advance to diet when medically feasible 2. TPN if EN/GI unaccessible >7 days 3. FU with GI consults and lab values Expected Outcomes/Goals: Recover from sepsis NICOLLE Castro RESIDENT Jan 15, 2025 09:39 NICOLLE CROOK Jan 15, 2025 19:10
[2025-01-15] MEDS: POTASSIUM CHL 20MEQ/100ML 100 ML IV SCH (09:55)
[2025-01-15] MEDS: ENOXAPARIN SOD 40 MG/0.4 ML SYRINGE SC SCH (10:03)
--- NOTE | 2025-01-15 13:24 | DVH ---
CLINICAL HISTORY: rule out megacolon, c diff TECHNIQUE: Single view of the abdomen was obtained. COMPARISON: None FINDINGS: The ball gas pattern is nonspecific with air filled nondilated small enlarged bowel. No free air is s een. No concerning calcification is present. There are with extensive right pelvic vascular calcifica tions. IMPRESSION: Nonspecific bowel gas pattern.
[2025-01-16 01:00] VITALS: BP 162/66; PULSE 60; RESP 18; TEMP 97.9; O2SAT 98
[2025-01-16 05:00] VITALS: BP 157/78; PULSE 64; RESP 18; TEMP 98; O2SAT 98
[2025-01-16 07:01] LABS: Hematocrit 32.0 % (36.0-46.0); Hemoglobin 10.8 g/dL (12.2-16.2); Mean Corpuscular Hemoglobin 27.4 pg (28.0-32.0); Mean Corpuscular Volume 81.0 fL (80.0-100.0); Nucleated Red Blood Cells % 0.1 %
[2025-01-16 07:11] LABS: Anion Gap 10 (5-15); Carbon Dioxide 24 mmol/L (20-31); Chloride 106 mmol/L (98-107); Potassium 3.6 mmol/L (3.5-5.1); Sodium 140 mmol/L (136-145)
[2025-01-16 07:17] LABS: BUN/Creatinine Ratio 10.2 (10.0-20.0); Glucose 89 mg/dL (74-106)
[2025-01-16 07:31] LABS: Blood Urea Nitrogen 5 mg/dL (9-23); Calcium 8.1 mg/dL (8.7-10.4)
[2025-01-16 08:00] VITALS: PULSE 52; RESP 18; O2SAT 97
[2025-01-16 08:55] VITALS: BP 149/61; PULSE 52; RESP 18; TEMP 98.6; O2SAT 97
[2025-01-16 13:00] VITALS: BP 164/81; PULSE 62; RESP 17; TEMP 97.6; O2SAT 98
[2025-01-16] MEDS ORDERED: VANC125PO PO (16:39)
[2025-01-16] MEDS ORDERED: METR-344 PO (16:39)
--- NOTE | 2025-01-16 16:42 | DVHDSRES ---
Discharge Summary Date of Admission Resident Creating Document: NICOLLE PORTER Jan 08, 2025 at 20:52 Date of Discharge: Jan 16, 2025 Labs/Diagnostic Data: Laboratory Results Test 01/16/25 11:41 01/16/25 05:26 01/14/25 05:58 01/11/25 07:56 POC Glucose 93 mg/dl (70-106) White Blood Count 8.2 10^3/uL (4.4-10.8) Red Blood Count 3.95 10^6/uL (4.0-5.20) Hemoglobin 10.8 g/dL (12.2-16.2) Hematocrit 32.0 % (36.0-46.0) Mean Corpuscular Volume 81.0 fL (80.0-100.0) Mean Corpuscular Hemoglobin 27.4 pg (28.0-32.0) Mean Corpuscular Hemoglobin Concent 33.8 g/dL (32.0-36.0) Red Cell Distribution Width 14.6 % (11.8-14.3) Platelet Count 362 10^3/uL (140-450) Mean Platelet Volume 7.6 fL (6.9-10.8) Neutrophils (%) (Auto) 73.1 % (37.0-80.0) Lymphocytes (%) (Auto) 16.1 % (10.0-50.0) Monocytes (%) (Auto) 8.3 % (0.0-12.0) Eosinophils (%) (Auto) 1.9 % (0.0-7.0) Basophils (%) (Auto) 0.6 % (0.0-2.0) Neutrophils # (Auto) 6.0 10 ^3/uL (1.6-8.6) Lymphocytes # (Auto) 1.3 10 ^3/uL (0.4-5.4) Monocytes # (Auto) 0.7 10 ^3/uL (0-1.3) Eosinophils # (Auto) 0.2 10 ^3/uL (0-0.8) Basophils # (Auto) 0.1 10 ^3/uL (0-0.2) Nucleated Red Blood Cells 0.1 % Sodium Level 140 mmol/L (136-145) Potassium Level 3.6 mmol/L (3.5-5.1) Chloride Level 106 mmol/L (98-107) Carbon Dioxide Level 24 mmol/L (20-31) Anion Gap 10 (5-15) Blood Urea Nitrogen 5 mg/dL (9-23) Creatinine 0.49 mg/dL (0.550-1.02) Glomerular Filtration Rate Calc 95 mL/min (>90) BUN/Creatinine Ratio 10.2 (10.0-20.0) Serum Glucose 89 mg/dL (74-106) Calcium Level 8.1 mg/dL (8.7-10.4) Magnesium Level 1.7 mg/dL (1.6-2.6) Total Bilirubin 0.2 mg/dL (0.2-1.0) Aspartate Amino Transferase (AST) 21 U/L (13-40) Alanine Aminotransferase (ALT) 19 U/L (7-40) Alkaline Phosphatase 59 U/L (46-116) Total Protein 5.7 g/dL (5.7-8.2) Albumin 3.3 g/dL (3.2-4.8) Reticulocyte Count (auto) 1.45 % (0.5-1.5) Iron Level 16 ug/dL (50-170) Total Iron Binding Capacity 255 ug/dL (250-425) Percent Iron Saturation 6.3 % (15-50) Ferritin 54.8 ng/mL (10-291) Folic Acid 10.12 ng/mL (>5.38) Test 01/09/25 04:05 01/09/25 01:00 01/08/25 22:57 01/08/25 20:40 Hemoglobin A1c 6.9 % A1C (<5.7) Triglycerides Level 57 mg/dL (< 150) Cholesterol Level 99 mg/dL (< 200) LDL Cholesterol 49 mg/dL (< 100) HDL Cholesterol 42 mg/dL (40-59) Free Thyroxine (T4) Calculated 1.33 ng/dL (0.89-1.76) Free Triiodothyronine (T3) pg/mL 2.43 pg/mL (2.3-4.2) Urine Color Yellow (Yellow) Urine Clarity Clear (Clear) Urine pH 6.0 (5.0-9.0) Urine Specific [place] 1.015 (1.001-1.035) Urine Protein Negative (Negative) Urine Ketones Negative (Negative) Urine Blood Negative /uL (Negative) Urine Nitrite Negative (Negative) Urine Bilirubin Negative (Negative) Urine Urobilinogen Normal mg/dL (Negative) Urine Leukocyte Esterase Negative /uL (Negative) Urine RBC 1 /hpf (0 - 4) Urine Microscopic WBC 1 /HPF (0-5) Urine Squamous Epithelial Cells Few /hpf (<5) Urine Bacteria None seen /hpf (None Seen) Urine Hyaline Casts Few /lpf (0 - 2) Urine Glucose 3+ mg/dL (Normal) Lactic Acid Level 1.3 mmol/L (0.4-2.0) Urine WBC Clumps Present /hpf (None Seen) Urine Mucus Many (None Seen) Test 01/08/25 17:42 01/08/25 16:17 01/08/25 16:01 Troponin I High Sensitivity 3 ng/L (</=34) Thyroid Stimulating Hormone (TSH) 0.35 uIU/mL (0.55-4.78) Stool pH 7.0 (7.0-7.5) Stool Occult Blood Positive (Negative) Stool Occult Blood Sample #3 (Negative) Stool for White Cells None seen Differential Total Cells Counted 100.0 (100) Neutrophils % (Manual) 77 (37.0-80.0) Band Neutrophils % (Manual) 7 Lymphocytes % (Manual) 10 (10.0-50.0) Monocytes % (Manual) 6 (0-12) Eosinophils % (Manual) 0 (0-7) Basophils % (Manual) 0 (0.0-2.0) Metamyelocytes % (manual) 0 Myelocytes % (Manual) 0 Promyelocytes % (Manual) 0 Blast Cells % (Manual) 0 Reactive Lymphocytes 0 Platelet Estimate Adequate Prothrombin Time 10.8 sec (9.3-11.8) Prothrombin Time INR 1.02 (0.9-1.15) Activated Partial Thromboplast Time 22.2 SEC (24.5-34.5) D-Dimer, Quantitative > 35.20 mg/L FEU (0.0-0.49) B-Type Natriuretic Peptide 61.99 pg/mL (0-100) Other Laboratory Tests 01/16/25 05:26 Brief Hx & Hospital Course: Josie Hobbs is 79-year-old female who presented to the ER with complain of abdominal pain, dizziness and fall. She reported feeling dizzy and fell after standing up from a sitting position in washroom, she reports falling down again as she started to walk down on hallway. She reported similar episodes where the patient get dizziness while certainly standing up however never had passing out episode. She reports hitting her head. Never happened he has event before. She also complained of left-lower quadrant abdominal pain associated with associated with constipation for the past 4 day. She reports reduced oral intake. She also complained of urinary retention, Iglesias placed in ER. She denied chest pain, shortness of bread, fever, chills. No any other complaint of sensory deficit, motor weakness, any other complaint. As per family and patient the patient is pretty active and able to ambulate without any support. Past medical history: Hypertension, diabetes on insulin, dyslipidemia, hypothyroidism Past surgical history: None Family's history: Noncontributory Personal history: The patient lives with family, sister take care of her at home. Home medication: Levothyroxine , benazepril, duloxetine, insulin, donepezil, gabapentin. Hospital course: Patient was admitted sepsis due to acute infectious C diff. colitis. CT abdomen and pelvis: Findings consistent with colitis of the entire length of the descending colon.No intra-abdominal abscess is identified. Large amount of stool distending the rectum and distal sigmoid, Normal appendix. Stool studies: Toxigenic C. difficile (toxin B gene) DNA detected. patient treated conservatively with IV fluid, IV metronidazole and p.o. vancomycin. Stool culture: Many growth: Normal Enteric Eda. No Campylobacter antigen detected. No Salmonella or Shigella species isolated. No E. coli O157 isolate. X-ray KUB to rule out toxic colon was normal, was ordered today because the patient started to have emesis . CT head shows no intracranial abnormality. Labs showed elevated D-dimer and CT angio negative for any PE. Bilateral lower extremity Venous duplex shows no evidence of acute DVT but nonspecific fluid in the right popliteal fossa. Currently, patient able tolerate diet and denies any GI symptoms like nausea, vomiting, abdominal pain, fever. Leukocytosis resolved and blood culture shows no growth. Patient is hemodynamically stable for discharge. The patient has received maximum benefits from inpatient treatment. Time was given to answer patient/ parents questions and concerns in Layman terms. patient verbalized understanding and agree with treatment and follow-up. Patient was recommended to return to the ED if she experiences any worsening symptoms such as, but not limited to GI symptoms. continue current home medication. Follow-up with discharge Clinic within 1 weeks make appointment with Dr. Evans on Friday morning and follow-up with primary care physician. Patient educated and advised to resume home medication and Metronidazole, Vancomycin p.o. antibiotic sent to patient pharmacy. General Appearance: Alert, Oriented X3, Cooperative, Mild distress HEENT: Atraumatic, Mucous membranes moist/pink Respiratory: Clear to auscultation, Normal air movement, No added sounds Cardiovascular: Regular rate, Normal S1, Normal S2, No murmurs Abdominal/ : Active bowel sounds, Soft, no distention, mild upper and lower abdominal tenderness Extremities: No edema, Normal pulses, No tenderness/swelling Skin: No Significant rash, except past surgical scars Neuro: Normal speech, sensorimotor deficits none Psych/Mental Status: Mental status NL, Mood NL Nurse was there as team psychologist during examination. Operations or Procedures ORDERING PHYSICIAN: ESDRAS JOHNSON MD PROCEDURE(s): ABPL - CT AB PEL WO CON-NO ORAL OR IV REASON: hypotension LLQ pain ORDER NUMBER(s): [id number], ACCESSION NUMBER(s): [id number] Exam: CT CT AB PEL WO CON-NO ORAL OR IV History: hypotension LLQ pain Comparison Study: None TECHNIQUE: Multidetector CT of the abdomen was performed from lung bases to pubic symphysis. Imaging was performed without IV contrast. Axial, coronal and sagittal multiplanar reformats were obtained from the axial data set by the technologist. Radiation Dose Information: CT Dose: CTDI volume is 7.11 mGy. Dose-length product is 368.82 mGy*cm FINDINGS: Evaluation of solid organs is limited due to lack of intravenous contrast use. Findings: Lung Bases: No acute or significant lung base finding. Normal heart size. No pleural or pericardial effusion. Liver: The liver is normal in size. No focal lesions. Gallbladder and Biliary Tree: Unremarkable Spleen: Unremarkable Pancreas: The pancreas is grossly normal in appearance. Adrenal Glands: Unremarkable Kidneys: Kidneys are grossly normal without calculi or hydronephrosis. Bladder: Grossly unremarkable for degree of distention. Bowel: The stomach is grossly normal in appearance. Nondistended fluid-filled small bowel. Stool in the rectosigmoid colon. The appendix is not visualized; however, no secondary findings of acute appendicitis identified. Ascites: Absent Lymphadenopathy: No mesenteric, retroperitoneal or periportal lymphadenopathy. Abdominal Wall and Mesentery: Unremarkable. Vasculature: The visualized abdominal aorta is normal in size and caliber. Evaluation of abdominal and pelvic vessels is limited due to lack of intravenous contrast. Pelvic Organs: Unremarkable Musculoskeletal: No aggressive focal bony lesions, acute fractures or dislocation. Soft tissues: Unremarkable IMPRESSION: 1. Nondistended fluid-filled small bowel may represent enteritis 2. Stool-filled rectosigmoid colon.( 8 cm may represent fecal impaction. Radiation optimization: All CT scans at this facility use at least one of these dose optimization techniques: automated exposure control mA and/or kV adjustment per patient size (includes targeted exams where dose is matched to clinical indication) or iterative reconstruction. ATED BY: RADHA BEACH Jr., DO DICTATED DATE/TIME: 01/08/25 1559 ORDERING PHYSICIAN: ESDRAS JOHNSON MD PROCEDURE(s): HWOCT - HEAD WITHOUT CONTRAST REASON: syncope ORDER NUMBER(s): [id number], ACCESSION NUMBER(s): [id number] EXAM: CT HEAD WITHOUT CONTRAST INDICATION: syncope TECHNIQUE: CT of the head without intravenous contrast. Radiation Dose Information: CT Dose: CTDI volume is 53.44 mGy. Dose-length product is 965.26 mGy*cm The dose indicators for CT are the volume Computed Tomography (CT) Dose Index (CTDIvol) and the Dose Length Product (DLP), and are measured in units of mGy and mGy-cm, respectively. These indicators are not patient dose, but values generated from the CT scanner acquisition factors. The report includes radiation exposure data for exposures received during this examination. COMPARISON: None FINDINGS: There is no evidence of acute intracranial hemorrhage, extra-axial collection, mass effect, midline shift, herniation or hydrocephalus. The ventricles, sulci and cisterns are age appropriate. The mcleod-white differentiation is intact. Patchy periventricular and subcortical white matter hypoattenuation is nonspecific but may be related to small vessel ischemic disease. The visualized paranasal sinuses and mastoid air cells are clear. The surrounding soft tissues and osseous structures are unremarkable. IMPRESSION: 1. No acute intracranial abnormality. ATED BY: RADHA BEACH Jr., DO DICTATED DATE/TIME: 01/08/25 1549 ORDERING PHYSICIAN: ESTRELLA GOMEZ RESIDENT PROCEDURE(s): BLDVT - BiLat Lower DVT REASON: DVT? ORDER NUMBER(s): [id number], ACCESSION NUMBER(s): [id number] Bilateral lower extremity venous duplex Clinical History: DVT Comparison: None Findings: Duplex Doppler evaluation of the deep venous systems of both lower extremities from the common femoral veins to the popliteal veins including color Doppler and spectral/pulsed waveform analysis was performed. RIGHT SIDE: The common femoral vein demonstrates appropriate compressibility and waveform variability. There is compressibility/patency of the great saphenous vein at the proximal thigh. The femoral vein demonstrates appropriate compressibility and waveform variability. The deep femoral vein demonstrates appropriate compressibility and waveform variability. The popliteal vein demonstrates appropriate compressibility and waveform variability. There is normal compressibility at the tibioperoneal trunk. There is nonspecific fluid in the right popliteal fossa. LEFT SIDE: The common femoral vein demonstrates appropriate compressibility and waveform variability. There is compressibility/patency of the great saphenous vein at the proximal thigh. The femoral vein demonstrates appropriate compressibility and waveform variability. The deep femoral vein demonstrates appropriate compressibility and waveform variability. The popliteal vein demonstrates appropriate compressibility and waveform variability. There is normal compressibility at the tibioperoneal trunk. IMPRESSION: 1. No sonographic evidence of acute DVT. 2. Nonspecific fluid in the right popliteal fossa. 3. END IMPRESSION: ATED BY: RICHY ARRIOLA MD DICTATED DATE/TIME: 01/09/25 0038 REASON FOR EXAM: rule out abdominal abcess or diverticulitis COMPARISON: None TECHNIQUE: The exam was performed on a Multidetector scanner. Spiral scans were acquired from the diaphragm to the symphysis pubis after administration of IV contrast. 2-D coronal and sagittal reformatted images were provided. Radiation optimization: All CT scans at this facility use at least one of these dose optimization techniques: Automated exposure control mA and/or kV adjustment per patient size (includes targeted exams where dose is matched to clinical indication) or iterative reconstruction. CONTRAST ADMINISTRATION: 94 mL omnipaque 300 intravenously. 500 cc omnipaque 12 by mouth. RADIATION DOSE: CTDI: 14.07 mGy DLP: 721.37 mGy-cm FINDINGS: Respiratory motion artifact degrades evaluation of the lung bases. There is subsegmental dependent consolidation in bilateral lower lobes, [id number]-left. There are trace bilateral pleural effusions, [id number]-left. The spleen is not enlarged. Evaluation of the abdomen and pelvis is degraded by streak artifact from the patient's arms. The liver is normal in size and contour. The hepatic veins are patent. The portal vein is patent. No calcified gallstone is identified. The pancreas is grossly unremarkable. The adrenal glands are normal. The kidneys enhance symmetrically. No solid renal mass is identified. There is no hydronephrosis of either kidney. There is no abdominal aortic aneurysm. No pathologic lymphadenopathy is identified by size criteria. The uterus is grossly unremarkable. The ovaries are not definitely seen. There is a small amount of free fluid in the dependent pelvis. The urinary bladder is collapsed about a Iglesias catheter balloon. The rectum and distal sigmoid are distended with a large amount of stool. There is circumferential thickening of the entirety of the descending colon consistent with colitis. There is mild sigmoid diverticulosis. The appendix is normal. There is no distention of the small bowel to suggest small bowel obstruction. No intra-abdominal abscess is identified. No acute osseous abnormality is identified. IMPRESSION: Findings consistent with colitis of the entire length of the descending colon. No intra-abdominal abscess is identified. Large amount of stool distending the rectum and distal sigmoid. Normal appendix ATED BY: HAKAN TY MD DICTATED DATE/TIME: 01/11/252023 ORDERING PHYSICIAN: NICOLLE CROOK RESIDENT PROCEDURE(s): KUB - KUB ABDOMEN SINGLE VIEW REASON: rule out megacolon, c diff ORDER NUMBER(s): [id number], ACCESSION NUMBER(s): [id number] CLINICAL HISTORY: rule out megacolon, c diff TECHNIQUE: Single view of the abdomen was obtained. COMPARISON: None FINDINGS: The ball gas pattern is nonspecific with air filled nondilated small enlarged bowel. No free air is seen. No concerning calcification is present. There are with extensive right pelvic vascular calcifications. IMPRESSION: Nonspecific bowel gas pattern. 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 Hypothyroidism Stool occult positive, no active GI bleed, secondary to colitis History of asthma, no exacerbation Discharge Disposition: Home Discharge Instruct/Medications Diet: Regular Activity: No Restrictions, As Tolerated Scheduled Benazepril Hcl (Benazepril Hcl), 40 MG PO DAILY, (Reported) Donepezil Hydrochloride (Donepezil Hcl), 10 MG PO DAILY, (Reported) Duloxetine Hcl (Cymbalta), 1 CAP PO DAILY, (Reported) Metronidazole (Flagyl), 500 MG PO TID Pravastatin Sodium (Pravachol Tablet), 40 MG PO DAILY, (Reported) Vancomycin Hcl (Vancomycin Po), 125 MG PO Q6HR Miscellaneous Medications Albuterol Sulfate (Albuterol Sulfate), 0.63 MG IN, (Reported) Dulaglutide (Trulicity), 1.5 MG SC, (Reported) Fluticasone Propionate (Fluticasone Propionate), 50 MCG TWILA, (Reported) Insulin Glargine (Lantus), 15 UNIT SC, (Reported) Tavaborole (Tavaborole), 5 % EX, (Reported) Discharge Statement: "Patient was advised to return to the ER or call 911 if any headaches, dizziness, shortness of breath, chest pain, abdominal pain, bleeding, fevers, or worsening of medical condition. Patient was counseled about treatment plan, medications, possible side effects, patientverbalized understanding. All questions were answered to the best of my ability. This discharge took greater then 30 minutes in planning, reviewing documentation, counseling the patient, and discussing with other team members." ASSESSMENT ASSESSMENT Assessment Sepsis due to infection, C diff colitis GAIL EVANS RESIDENT Jan 16, 2025 16:42
== END 2025-01-16 18:05 | disposition home or self-care (01) | DRG 871 ==
LOC: ER 14:48 → EDBD 14:48 → OVERFLOW 20:52 → TELE-EAST 01-09 18:29 → EAST 01-13 20:38
PROVIDERS: ADMIT Student in an Organized Health Care Education/Training Program; ATTEND Student in an Organized Health Care Education/Training Program
DX: A41.9 Sepsis, unspecified organism (principal); G93.41 Metabolic encephalopathy; N17.0 Acute kidney failure with tubular necrosis; E87.20 Acidosis, unspecified; N39.0 Urinary tract infection, site not specified; A04.72 Enterocolitis due to Clostridium difficile, not specified as recurrent; Z66 Do not resuscitate; E11.22 Type 2 diabetes mellitus with diabetic chronic kidney disease; E11.65 Type 2 diabetes mellitus with hyperglycemia; N18.9 Chronic kidney disease, unspecified; K56.41 Fecal impaction; E78.5 Hyperlipidemia, unspecified; J45.909 Unspecified asthma, uncomplicated; I12.9 Hypertensive chronic kidney disease with stage 1 through stage 4 chronic kidney disease, or unspecified chronic kidney disease; E03.9 Hypothyroidism, unspecified; R33.9 Retention of urine, unspecified; D50.9 Iron deficiency anemia, unspecified; Z79.4 Long term (current) use of insulin
CPT/HCPCS: 36415; 70450; 71045; 71275; 74018; 74176; 74177; 80048; 80053; 80061; 81001; 82270; 82728; 82746; 82962; 83036; 83540; 83550; 83605; 83735; 83880; 83986; 84439; 84443; 84481; 84484; 85007; 85025; 85027; 85045; 85048; 85379; 85610; 85730; 87040; 87045; 87086; 87427; 87493; 93970; 96365; 96372; 99291; G0378; J1815; J2470; J2543; J3480; J3490